=== PATIENT | female | born 1965 | race Caucasian/White ===

== ENCOUNTER 2016-10-22 23:02 | Inpatient (IN) ==
[2016-10-22 23:37] LABS: Basophils # 0.1 K/mcL (0.0-0.2); Basophils % 0.9 %; Eosinophils # 0.2 K/mcL (0.0-0.6); Eosinophils % 3.3 %; Hematocrit 47.3 % (35.3-44.9); Hemoglobin 15.9 g/dL (11.5-15.4); Immature Granulocytes % 1.2 % (0-4); Lymphocytes # 2.3 K/mcL (0.6-4.6); Lymphocytes % 35.4 %; Mean Corpuscular HGB Conc 33.6 g/dL (31.6-35.5); Mean Corpuscular Hemoglobin 30.9 pg (28.0-33.3); Mean Corpuscular Volume 91.8 fL (83.0-100.0); Mean Platelet Volume 10.7 fL (9.4-12.4); Monocytes # 0.7 K/mcL (0.0-1.3); Monocytes % 10.9 %; Neutrophils # 3.1 K/mcL (1.6-8.9); Platelet Count 199 K/mcL (140-400); Red Blood Count 5.15 M/mcL (3.82-4.97); Red Cell Distribution Width 14.6 % (11.5-14.5); Segmented Neutrophils % 48.3 %
[2016-10-22 23:47] LABS: Bilirubin,Urine Negative (Negative); Blood,Urine Negative (Negative); Color,Urine Yellow (Yellow); Glucose,Urine (UA) Normal (Normal); Ketones,Urine Negative (Negative); Leukocyte Esterase,Urine Negative (Negative); Nitrite,Urine Negative (Negative); Protein,Urine Negative (Neg-Trace); Specific Gravity,Urine 1.011 (1.010-1.025); Urobilinogen,Urine Normal (Normal)
[2016-10-22 23:51] LABS: Clarity,Urine Clear (Clear)
[2016-10-22 23:51] LABS: Alanine Aminotransferase 40 Units/L (0-55); Albumin 3.7 g/dL (3.5-5.0); Albumin/Globulin Ratio 1.1 (1.1-2.2); Alkaline Phosphatase 94 Units/L (38-126); Aspartate Amino Transferase 33 Units/L (5-34); BUN/Creatinine Ratio 12 (6-26); Bilirubin,Direct 0.1 mg/dL (0.0-0.5); Bilirubin,Indirect 0.2 mg/dL (0.0-1.2); Bilirubin,Total 0.3 mg/dL (0.2-1.2); Blood Urea Nitrogen 11 mg/dL (7-20); Calcium 9.5 mg/dL (8.6-10.8); Carbon Dioxide 27 mEq/L (19-29); Chloride 104 mEq/L (98-109); Globulin 3.3 g/dL (2.4-3.5); Glucose 101 mg/dL (70-99); Osmolality,Calculated 294 (280-300); Potassium 3.9 mEq/L (3.5-4.5); Sodium 142 mEq/L (136-145); eGFR For African Americans > 60 (> 60); eGFR For Non-African Americans > 60 (> 60)
[2016-10-22 23:53] LABS: Amphetamine Screen,Urine Negative ng/mL (Cutoff=1000); Barbiturate Screen,Urine Negative ng/mL (Cutoff=200); Benzodiazepines Screen,Urine Positive ng/mL (Cutoff=200); Cannabinoid Screen,Urine Negative ng/mL (Cutoff = 50); Cocaine Screen,Urine Positive ng/mL (Cutoff= 300); Opiate Screen,Urine Negative ng/mL (Cutoff=300); Phencyclidine Screen,Urine Negative ng/mL (Cutoff=25)
[2016-10-23 00:31] LABS: Acetaminophen < 1.0 mcg/mL (10-30); Ethanol 183 mg/dL (0-10); Salicylate < 5.0 mg/dL (15-30)
[2016-10-23 00:52] LABS: Thyroid Stimulating Hormone 4.067 mcIU/mL (0.350-4.840)
[2016-10-23] MEDS ORDERED: *HR* LORazepam 1 MG TABLET PO ONE (02:40)
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
--- NOTE | 2016-10-23 07:45 | Emergency Department Note ---
Disposition Clinical Impression: Suicidal ideation, Non-cardiac chest pain, Polysubstance abuse Disposition: Admitted As Inpatient Condition: Good Referrals: NO,PCP [Primary Care Provider] - Forms: ED Satisfaction Letter Psych HPI - General Chief Complaint: ED Psychiatric Symptoms Stated Complaint: SI Time Seen by Provider: 10/23/16 00:26 Source: patient, EMS - History of Present Illness Duration: constant Improves with: none Associated symptoms: Denies: confusion, headache Treatments prior to arrival: none - Related Data Home Medications Medication Instructions Recorded Confirmed Benztropine [Cogentin] 1 mg PO BID 04/25/16 10/23/16 HydrOXYzine Pamoate 50 mg PO TID PRN 04/25/16 10/23/16 Ropinirole [Requip] 1 mg PO HS 04/25/16 10/23/16 TraZODone 300 mg PO HS 04/25/16 10/23/16 Alprazolam [Xanax 1 MG Tablet] 1 mg PO QID PRN 07/16/16 10/23/16 Escitalopram [Lexapro] 20 mg PO DAILY 07/16/16 10/23/16 Latanoprost [Xalatan] 1 drop OP QPM 07/27/16 10/23/16 Amlodipine [Norvasc] 5 mg PO DAILY 10/23/16 10/23/16 Buspirone HCl [Buspar] 15 mg PO BID 10/23/16 10/23/16 Clotrimazole [Mycelex [place]] 10 mg PO 5XD 10/23/16 10/23/16 Oxybutynin [Ditropan] 5 mg PO BID 10/23/16 10/23/16 Pantoprazole Sodium [Protonix] 40 mg PO DAILY 10/23/16 10/23/16 Previous Rx's Medication Instructions Recorded Famotidine [Pepcid] 40 mg PO BID PRN #0 tablet 04/27/16 Allergies Allergy/AdvReac Type Severity Reaction Status Date / Time No Known Allergies Allergy Verified 10/03/16 15:06 Constitutional: Denies: fever Eyes: Denies: eye pain ENT ED: Denies: ear pain Cardiovascular: Denies: chest pain Respiratory: Denies: cough, dyspnea, wheezes Gastrointestinal: Denies: abdominal pain, nausea, vomiting Genitourinary: Denies: dysuria Musculoskeletal: Denies: back pain Integumentary: Denies: rash Neurological: Denies: headache Psychiatric: Reports: anxiety, depression Endocrine: Denies: fatigue Hematological/Lymphatic: Denies: easy bleeding Allergic/Immunologic: Denies: facial swelling Past Medical History - Past Medical History Medical history: Reports: GERD, hypertension, other Surgical history: Reports: other Psychiatric history: Reports: anxiety, depression, prior suicide attempt, other 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 Patient was reportedly intoxicated, depressed and expressed SI. She had a recent stressful situation that prompted this. She had an etoh level above 80. Plan is to re- draw an etoh level around 8am, and if it is normal then she will be medically cleared for 1A evaluation. Per review of the chart, the patient described having some chest pain around 2am. She states that she has had constant mid chest discomfort. She has had pain like this in the past. Will order a troponin to be done on the blood from the initial draw, and a repeat to be drawn with the repeat etoh. Patient's initial and repeat Troponin are both normal. CXR is normal and ECG is unchanged compared with previous. She is pain free. 1A is going to admit the patient. - Reevaluation(s) Reevaluation #1: medical technical writer in room with the patient. Asked her to draw a repeat Troponin as well as the etoh as patient had reported chest pain earlier in the evening. Time: 08:04 Vital Signs Temperature 98.2 F 10/22/16 23:05 Pulse Rate 88 10/22/16 23:05 Respiratory Rate 16 10/22/16 23:05 Blood Pressure 115/77 10/22/16 23:05 O2 Sat by Pulse Oximetry 95 10/22/16 23:05 Temperature 98.3 F 10/23/16 09:11 Pulse Rate 82 10/23/16 09:11 Respiratory Rate 16 10/23/16 09:11 Blood Pressure 122/76 10/23/16 09:11 O2 Sat by Pulse Oximetry 99 10/23/16 09:11 Oxygen Delivery Oxygen Delivery Room Air Psych - Lab Data Result diagrams: 10/22/16 23:22 10/22/16 23:22 Lab Results 10/22/16 10/22/16 10/22/16 Range/Units 08:07 23:22 23:22 WBC 6.4 (4.3-11.1) K/mcL RBC 5.15 H (3.82-4.97) M/mcL Hgb 15.9 H (11.5-15.4) g/dL Hct 47.3 H (35.3-44.9) % MCV 91.8 (83.0-100.0) fL MCH 30.9 (28.0-33.3) pg MCHC 33.6 (31.6-35.5) g/dL RDW 14.6 H (11.5-14.5) % Plt Count 199 (140-400) K/mcL MPV 10.7 (9.4-12.4) fL Immature Gran % 1.2 (0-4) % Seg Neutrophils % 48.3 % Lymphocytes % 35.4 % Monocytes % 10.9 % Eosinophils % 3.3 % Basophils % 0.9 % Neutrophils # 3.1 (1.6-8.9) K/mcL Lymphocytes # 2.3 (0.6-4.6) K/mcL Monocytes # 0.7 (0.0-1.3) K/mcL Eosinophils # 0.2 (0.0-0.6) K/mcL Basophils # 0.1 (0.0-0.2) K/mcL Sodium 142 (136-145) mEq/L Potassium 3.9 (3.5-4.5) mEq/L Chloride 104 (98-109) mEq/L Carbon Dioxide 27 (19-29) mEq/L BUN 11 (7-20) mg/dL Creatinine 0.93 (0.57-1.11) mg/dL Est GFR ( Amer) > 60 (> 60) Est GFR (Non-Af Amer) > 60 (> 60) BUN/Creatinine Ratio 12 (6-26) Glucose 101 H (70-99) mg/dL Calculated Osmolality 294 (280-300) Calcium 9.5 (8.6-10.8) mg/dL Total Bilirubin 0.3 (0.2-1.2) mg/dL Direct Bilirubin 0.1 (0.0-0.5) mg/dL Indirect Bilirubin 0.2 (0.0-1.2) mg/dL AST 33 (5-34) Units/L ALT 40 (0-55) Units/L Alkaline Phosphatase 94 (38-126) Units/L Troponin I 0.01 (0-0.03) ng/mL Serum Total Protein 7.0 (6.0-8.3) g/dL Albumin 3.7 (3.5-5.0) g/dL Globulin 3.3 (2.4-3.5) g/dL Albumin/Globulin Ratio 1.1 (1.1-2.2) TSH 4.067 (0.350-4.840) mcIU/mL Urine Color (Yellow) Urine Clarity (Clear) Urine pH (5.0-8.0) pH Units Ur Specific [place] (1.010-1.025) Urine Protein (Neg-Trace) mg/dL Urine Glucose (UA) (Normal) mg/dL Urine Ketones (Negative) mg/dL Urine Blood (Negative) Urine Nitrite (Negative) Urine Bilirubin (Negative) Urine Urobilinogen (Normal) mg/dL Ur Leukocyte Esterase (Negative) Urine Microscopic RBC Urine Bacteria Salicylates < 5.0 L (15-30) mg/dL Urine Opiates Screen (Xhiymk=468) ng/mL Acetaminophen < 1.0 L (10-30) mcg/mL Ur Barbiturates Screen (Zyehog=010) ng/mL Ur Phencyclidine Scrn (Cutoff=25) ng/mL Ur Amphetamines Screen (Qbktiv=3230) ng/mL U Benzodiazepines Scrn (Gtbwir=646) ng/mL Urine Cocaine Screen (Cutoff= 300) ng/mL U Marijuana (THC) Screen (Cutoff = 50) ng/mL Ethyl Alcohol 183 H (0-10) mg/dL 10/22/16 10/22/16 10/23/16 Range/Units 23:40 23:40 05:10 WBC (4.3-11.1) K/mcL RBC (3.82-4.97) M/mcL Hgb (11.5-15.4) g/dL Hct (35.3-44.9) % MCV (83.0-100.0) fL MCH (28.0-33.3) pg MCHC (31.6-35.5) g/dL RDW (11.5-14.5) % Plt Count (140-400) K/mcL MPV (9.4-12.4) fL Immature Gran % (0-4) % Seg Neutrophils % % Lymphocytes % % Monocytes % % Eosinophils % % Basophils % % Neutrophils # (1.6-8.9) K/mcL Lymphocytes # (0.6-4.6) K/mcL Monocytes # (0.0-1.3) K/mcL Eosinophils # (0.0-0.6) K/mcL Basophils # (0.0-0.2) K/mcL Sodium (136-145) mEq/L Potassium (3.5-4.5) mEq/L Chloride (98-109) mEq/L Carbon Dioxide (19-29) mEq/L BUN (7-20) mg/dL Creatinine (0.57-1.11) mg/dL Est GFR ( Amer) (> 60) Est GFR (Non-Af Amer) (> 60) BUN/Creatinine Ratio (6-26) Glucose (70-99) mg/dL Calculated Osmolality (280-300) Calcium (8.6-10.8) mg/dL Total Bilirubin (0.2-1.2) mg/dL Direct Bilirubin (0.0-0.5) mg/dL Indirect Bilirubin (0.0-1.2) mg/dL AST (5-34) Units/L ALT (0-55) Units/L Alkaline Phosphatase (38-126) Units/L Troponin I (0-0.03) ng/mL Serum Total Protein (6.0-8.3) g/dL Albumin (3.5-5.0) g/dL Globulin (2.4-3.5) g/dL Albumin/Globulin Ratio (1.1-2.2) TSH (0.350-4.840) mcIU/mL Urine Color Yellow (Yellow) Urine Clarity Clear (Clear) Urine pH 6.0 (5.0-8.0) pH Units Ur Specific [place] 1.011 (1.010-1.025) Urine Protein Negative (Neg-Trace) mg/dL Urine Glucose (UA) Normal (Normal) mg/dL Urine Ketones Negative (Negative) mg/dL Urine Blood Negative (Negative) Urine Nitrite Negative (Negative) Urine Bilirubin Negative (Negative) Urine Urobilinogen Normal (Normal) mg/dL Ur Leukocyte Esterase Negative (Negative) Urine Microscopic RBC LEASING DIRECTOR Urine Bacteria LEASING DIRECTOR Salicylates (15-30) mg/dL Urine Opiates Screen Negative (Jjqvhm=206) ng/mL Acetaminophen (10-30) mcg/mL Ur Barbiturates Screen Negative (Zrhvpy=545) ng/mL Ur Phencyclidine Scrn Negative (Cutoff=25) ng/mL Ur Amphetamines Screen Negative (Jpmqbr=7079) ng/mL U Benzodiazepines Scrn Positive H (Acpyrv=217) ng/mL Urine Cocaine Screen Positive H (Cutoff= 300) ng/mL U Marijuana (THC) Screen Negative (Cutoff = 50) ng/mL Ethyl Alcohol 98 H (0-10) mg/dL 10/23/16 10/23/16 Range/Units 08:07 08:07 WBC (4.3-11.1) K/mcL RBC (3.82-4.97) M/mcL Hgb (11.5-15.4) g/dL Hct (35.3-44.9) % MCV (83.0-100.0) fL MCH (28.0-33.3) pg MCHC (31.6-35.5) g/dL RDW (11.5-14.5) % Plt Count (140-400) K/mcL MPV (9.4-12.4) fL Immature Gran % (0-4) % Seg Neutrophils % % Lymphocytes % % Monocytes % % Eosinophils % % Basophils % % Neutrophils # (1.6-8.9) K/mcL Lymphocytes # (0.6-4.6) K/mcL Monocytes # (0.0-1.3) K/mcL Eosinophils # (0.0-0.6) K/mcL Basophils # (0.0-0.2) K/mcL Sodium (136-145) mEq/L Potassium (3.5-4.5) mEq/L Chloride (98-109) mEq/L Carbon Dioxide (19-29) mEq/L BUN (7-20) mg/dL Creatinine (0.57-1.11) mg/dL Est GFR ( Amer) (> 60) Est GFR (Non-Af Amer) (> 60) BUN/Creatinine Ratio (6-26) Glucose (70-99) mg/dL Calculated Osmolality (280-300) Calcium (8.6-10.8) mg/dL Total Bilirubin (0.2-1.2) mg/dL Direct Bilirubin (0.0-0.5) mg/dL Indirect Bilirubin (0.0-1.2) mg/dL AST (5-34) Units/L ALT (0-55) Units/L Alkaline Phosphatase (38-126) Units/L Troponin I 0.01 (0-0.03) ng/mL Serum Total Protein (6.0-8.3) g/dL Albumin (3.5-5.0) g/dL Globulin (2.4-3.5) g/dL Albumin/Globulin Ratio (1.1-2.2) TSH (0.350-4.840) mcIU/mL Urine Color (Yellow) Urine Clarity (Clear) Urine pH (5.0-8.0) pH Units Ur Specific [place] (1.010-1.025) Urine Protein (Neg-Trace) mg/dL Urine Glucose (UA) (Normal) mg/dL Urine Ketones (Negative) mg/dL Urine Blood (Negative) Urine Nitrite (Negative) Urine Bilirubin (Negative) Urine Urobilinogen (Normal) mg/dL Ur Leukocyte Esterase (Negative) Urine Microscopic RBC Urine Bacteria Salicylates (15-30) mg/dL Urine Opiates Screen (Zpuggh=029) ng/mL Acetaminophen (10-30) mcg/mL Ur Barbiturates Screen (Yucpqj=298) ng/mL Ur Phencyclidine Scrn (Cutoff=25) ng/mL Ur Amphetamines Screen (Haydgj=8961) ng/mL U Benzodiazepines Scrn (Eyxwvv=207) ng/mL Urine Cocaine Screen (Cutoff= 300) ng/mL U Marijuana (THC) Screen (Cutoff = 50) ng/mL Ethyl Alcohol 52 H (0-10) mg/dL Psychiatric Medical Clearance - Medical Clearance Checklist Medical History: No Social History Section defined Current Vitals: Last Vital Signs Temp 98.3 F 10/23/16 09:11 Pulse 82 10/23/16 09:11 Resp 16 10/23/16 09:11 BP 122/76 10/23/16 09:11 Pulse Ox 99 10/23/16 09:11 Psychiatric Lab Panel: Drug Levels and Toxicity 10/22/16 10/22/16 10/23/16 23:22 23:40 05:10 Urine Opiates Screen Negative Acetaminophen < 1.0 L Ur Barbiturates Screen Negative Ur Phencyclidine Scrn Negative Ur Amphetamines Screen Negative U Benzodiazepines Scrn Positive H Urine Cocaine Screen Positive H U Marijuana (THC) Screen Negative Ethyl Alcohol 183 H 98 H 10/23/16 08:07 Urine Opiates Screen Acetaminophen Ur Barbiturates Screen Ur Phencyclidine Scrn Ur Amphetamines Screen U Benzodiazepines Scrn Urine Cocaine Screen U Marijuana (THC) Screen Ethyl Alcohol 52 H Abnormal Labs: Abnormal lab results RBC 5.15 M/mcL (3.82-4.97) H 10/22/16 23:22 Hgb 15.9 g/dL (11.5-15.4) H 10/22/16 23:22 Hct 47.3 % (35.3-44.9) H 10/22/16 23:22 RDW 14.6 % (11.5-14.5) H 10/22/16 23:22 Glucose 101 mg/dL (70-99) H 10/22/16 23:22 Salicylates < 5.0 mg/dL (15-30) L 10/22/16 23:22 Acetaminophen < 1.0 mcg/mL (10-30) L 10/22/16 23:22 U Benzodiazepines Scrn Positive ng/mL (Qrhotm=456) H 10/22/16 23:40 Urine Cocaine Screen Positive ng/mL (Cutoff= 300) H 10/22/16 23:40 Ethyl Alcohol 52 mg/dL (0-10) H 10/23/16 08:07 Statement of Medical Clearance: I have evaluated the patient, reviewed diagnostic information, and certify that the patient's medical condition is sufficiently stable that transfer to the psychiatric unit does not pose a significant risk of deterioration. Attestation Statement - Attestation Attestation: I examined this patient and my medical decision-making was reviewed with the DIRECTOR OF SUSTAINABILITY/PA/Advanced Practice Nurse/Resident Physician. I agree with the documented findings, disposition and treatment plan as described except to the extent set forth below. [id number] time provided Patient presented intoxicated. She was cleared medically for behavioral evaluation. She was accepted for admission to the behavioral unit. She is resting comfortably at the time of my exam. I did review her labs
[2016-10-23] MEDS ORDERED: MOM Conc 10 ML UD.LIQ PO PRN (14:09)
[2016-10-23] MEDS ORDERED: Haloperidol Lactate 5 MG/ML VIAL IM PRN (14:09)
[2016-10-23] MEDS ORDERED: Mag Hydrox/Al Hydrox/Simeth 30 ML UDC PO PRN (14:09)
[2016-10-23] MEDS ORDERED: *HR* LORazepam 1 MG TABLET PO PRN (14:09)
[2016-10-23] MEDS ORDERED: *HR* LORazepam 2 MG/ML VIAL IM PRN (14:09)
[2016-10-23] MEDS ORDERED: traZODone 50 MG TABLET PO PRN (14:09)
[2016-10-23] MEDS ORDERED: Famotidine 20 MG TABLET PO PRN (14:12)
[2016-10-23] MEDS: ALPRAZolam 1 MG TABLET PO SCH ×2 (15:07→20:50)
[2016-10-23] MEDS: Latanoprost 2.5 ML BOTTLE BOTH EYES SCH (17:23)
[2016-10-23] MEDS: Ibuprofen 400 MG TABLET PO PRN (17:27)
[2016-10-23] MEDS: rOPINIRole 1 MG TABLET PO SCH (20:50)
[2016-10-23] MEDS: traZODone 50 MG TABLET PO SCH (20:51)
[2016-10-24] MEDS: ALPRAZolam 1 MG TABLET PO SCH ×3 (08:42→20:44)
[2016-10-24] MEDS: amLODIPine 5 MG TABLET PO SCH (08:42)
[2016-10-24] MEDS: Nicotine 21 MG PATCH.TD24 TD SCH (08:44)
--- NOTE | 2016-10-24 11:06 | Psychiatry History & Physical ---
Date of Encounter: 10/24/16 Time of Encounter: 11:00 History of Present Illness Patient Stated Chief Complaint: Suicidal Medicare Admission Attestation: For traditional Medicare patients the provided hospital inpatient services are reasonable and necessary and in the case of services not specified as inpatient -only under 42 CFR 419.22 (n), that they are appropriately provided as inpatient services in accordance 42 CFR 412.3. For [facility] the patient may reasonably be expected to be discharged or transferred to a hospital within 96 hours after admission to the Critical [facility]. Admitted From: Emergency Dept History of Present Illness: Ms. Card is a 51 year old female admitted suicidal ideation and intoxication was alcohol and cocaine. Patient reported that she was upset after her dog was killed by another dog. Patient has history of alcohol dependence and depression has been on medication for several years. 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 She had been hospitalized before on this unit for similar presentation. She reports having 2 DUIs in her 20s. Past Med Surg Social Fam HX - Past Medical History Medical history: GERD, hypertension, other - Past Psychiatric History Psychiatric history: Reports: depression, previous psychiatric hospitalization Family psychiatric history: Unknown Family History of Suicide: Unknown - Past Surgical History Surgical History: hysterectomy - Social History Smoking Status: Current every day smoker Smokeless Tobacco Status: No Alcohol use: recent Drug use: none Medications & Allergies Benztropine [Cogentin] 1 mg PO BID 04/25/16 [History] HydrOXYzine Pamoate 50 mg PO TID PRN 04/25/16 [History] Ropinirole [Requip] 1 mg PO HS 04/25/16 [History] TraZODone 300 mg PO HS 04/25/16 [History] Famotidine [Pepcid] 40 mg PO BID PRN #0 tablet 04/27/16 [Rx] Alprazolam [Xanax 1 MG Tablet] 1 mg PO QID PRN 07/16/16 [History] Escitalopram [Lexapro] 20 mg PO DAILY 07/16/16 [History] Latanoprost [Xalatan] 1 drop OP QPM 07/27/16 [History] Amlodipine [Norvasc] 5 mg PO DAILY 10/23/16 [History] Buspirone HCl [Buspar] 15 mg PO BID 10/23/16 [History] Clotrimazole [Mycelex Destinee] 10 mg PO 5XD 10/23/16 [History] Oxybutynin [Ditropan] 5 mg PO BID 10/23/16 [History] Pantoprazole Sodium [Protonix] 40 mg PO DAILY 10/23/16 [History] Allergies No Known Allergies Allergy (Verified 10/03/16 15:06) Review of Systems Psychiatric: Reports: suicidal ideation Mental Status Exam Patient orientation: Yes Person, Yes Time, Yes Place Level of alertness: Alert Patient appearance: Appropriate, Well Groomed, Obese Behavior: calm, cooperative, anxious Psychomotor activity: Normal Eye contact: Maintains Eye Contact Mood description: Depressed, Anxious Affect description: constricted, dysphoric Speech pattern: Normal rate, Normal rhythm, Normal tone, Slowed, Limited Speech volume: Normal Thought process: Linear, Goal Oriented Thought content: Yes Suicidal ideation, No Homicidal ideation, No Overt delusions Perceptual disturbances: No Auditory hallucinations, No Visual hallucinations Attention span: Capable of Sustained Attention Memory description: Grossly Intact Patient reliability: Questionable Historian Intelligence estimate: Average Judgment: Limited Insight: Partial Results - Vital Signs Vital signs: Temp Pulse Resp BP Pulse Ox 97.9 F 75 18 130/91 99 10/24/16 08:00 10/24/16 08:00 10/24/16 08:00 10/24/16 08:00 10/23/16 09:11 - Labs Labs: Laboratory Last Values WBC 6.4 K/mcL (4.3-11.1) 10/22/16 23:22 RBC 5.15 M/mcL (3.82-4.97) H 10/22/16 23:22 Hgb 15.9 g/dL (11.5-15.4) H 10/22/16 23:22 Hct 47.3 % (35.3-44.9) H 10/22/16 23:22 MCV 91.8 fL (83.0-100.0) 10/22/16 23:22 MCH 30.9 pg (28.0-33.3) 10/22/16 23:22 MCHC 33.6 g/dL (31.6-35.5) 10/22/16 23:22 RDW 14.6 % (11.5-14.5) H 10/22/16 23:22 Plt Count 199 K/mcL (140-400) 10/22/16 23:22 MPV 10.7 fL (9.4-12.4) 10/22/16 23:22 Immature Gran % 1.2 % (0-4) 10/22/16 23:22 Seg Neutrophils % 48.3 % 10/22/16 23:22 Lymphocytes % 35.4 % 10/22/16 23:22 Monocytes % 10.9 % 10/22/16 23:22 Eosinophils % 3.3 % 10/22/16 23:22 Basophils % 0.9 % 10/22/16 23:22 Neutrophils # 3.1 K/mcL (1.6-8.9) 10/22/16 23:22 Lymphocytes # 2.3 K/mcL (0.6-4.6) 10/22/16 23:22 Monocytes # 0.7 K/mcL (0.0-1.3) 10/22/16 23:22 Eosinophils # 0.2 K/mcL (0.0-0.6) 10/22/16 23:22 Basophils # 0.1 K/mcL (0.0-0.2) 10/22/16 23:22 Sodium 142 mEq/L (136-145) 10/22/16 23:22 Potassium 3.9 mEq/L (3.5-4.5) 10/22/16 23:22 Chloride 104 mEq/L (98-109) 10/22/16 23:22 Carbon Dioxide 27 mEq/L (19-29) 10/22/16 23:22 BUN 11 mg/dL (7-20) 10/22/16 23:22 Creatinine 0.93 mg/dL (0.57-1.11) 10/22/16 23:22 Est GFR ( Amer) > 60 (> 60) 10/22/16 23:22 Est GFR (Non-Af Amer) > 60 (> 60) 10/22/16 23:22 BUN/Creatinine Ratio 12 (6-26) 10/22/16 23:22 Glucose 101 mg/dL (70-99) H 10/22/16 23:22 Calculated Osmolality 294 (280-300) 10/22/16 23:22 Calcium 9.5 mg/dL (8.6-10.8) 10/22/16 23:22 Total Bilirubin 0.3 mg/dL (0.2-1.2) 10/22/16 23:22 Direct Bilirubin 0.1 mg/dL (0.0-0.5) 10/22/16 23:22 Indirect Bilirubin 0.2 mg/dL (0.0-1.2) 10/22/16 23:22 AST 33 Units/L (5-34) 10/22/16 23:22 ALT 40 Units/L (0-55) 10/22/16 23:22 Alkaline Phosphatase 94 Units/L (38-126) 10/22/16 23:22 Troponin I 0.01 ng/mL (0-0.03) 10/23/16 08:07 Serum Total Protein 7.0 g/dL (6.0-8.3) 10/22/16 23:22 Albumin 3.7 g/dL (3.5-5.0) 10/22/16 23:22 Globulin 3.3 g/dL (2.4-3.5) 10/22/16 23:22 Albumin/Globulin Ratio 1.1 (1.1-2.2) 10/22/16 23:22 TSH 4.067 mcIU/mL (0.350-4.840) 10/22/16 23:22 Urine Color Yellow (Yellow) 10/22/16 23:40 Urine Clarity Clear (Clear) 10/22/16 23:40 Urine pH 6.0 pH Units (5.0-8.0) 10/22/16 23:40 Ur Specific Ker[place] 1.011 (1.010-1.025) 10/22/16 23:40 Urine Protein Negative mg/dL (Neg-Trace) 10/22/16 23:40 Urine Glucose (UA) Normal mg/dL (Normal) 10/22/16 23:40 Urine Ketones Negative mg/dL (Negative) 10/22/16 23:40 Urine Blood Negative (Negative) 10/22/16 23:40 Urine Nitrite Negative (Negative) 10/22/16 23:40 Urine Bilirubin Negative (Negative) 10/22/16 23:40 Urine Urobilinogen Normal mg/dL (Normal) 10/22/16 23:40 Ur Leukocyte Esterase Negative (Negative) 10/22/16 23:40 Urine Microscopic RBC PEARL MAKER 10/22/16 23:40 Urine Bacteria PEARL MAKER 10/22/16 23:40 Salicylates < 5.0 mg/dL (15-30) L 10/22/16 23:22 Urine Opiates Screen Negative ng/mL (Ersmhb=937) 10/22/16 23:40 Acetaminophen < 1.0 mcg/mL (10-30) L 10/22/16 23:22 Ur Barbiturates Screen Negative ng/mL (Dkalcd=647) 10/22/16 23:40 Ur Phencyclidine Scrn Negative ng/mL (Cutoff=25) 10/22/16 23:40 Ur Amphetamines Screen Negative ng/mL (Cqxyfs=0343) 10/22/16 23:40 U Benzodiazepines Scrn Positive ng/mL (Biszzz=811) H 10/22/16 23:40 Urine Cocaine Screen Positive ng/mL (Cutoff= 300) H 10/22/16 23:40 U Marijuana (THC) Screen Negative ng/mL (Cutoff = 50) 10/22/16 23:40 Ethyl Alcohol 52 mg/dL (0-10) H 10/23/16 08:07 Assessment and Plan (1) Suicidal ideation Current visit: Yes Status: Acute Plan: Admit inpatient for safety and stabilization, Close observation, Suicide Precautions per unit protocol, Encourage participation in unit milieu, Group Therapy, Monitor sleep, Monitor appetite Risks, benefits, side effects, alternatives discussed w/pt: Yes Patient agreeable to treatment: Yes (2) Alcohol dependence Current visit: No Status: Acute Plan: Admit inpatient for safety and stabilization, Close observation, Suicide Precautions per unit protocol, Encourage participation in unit milieu, Group Therapy, Monitor sleep, Monitor appetite Risks, benefits, side effects, alternatives discussed w/pt: Yes Patient agreeable to treatment: Yes Estimated Length of Stay (Days): 5 Qualifiers: Substance use status: with intoxication Complication of substance-induced condition: with unspecified complication Qualified Code(s): F10.229 - Alcohol dependence with intoxication, unspecified (3) Cocaine abuse Current visit: Yes Status: Acute Plan: Admit inpatient for safety and stabilization, Close observation, Suicide Precautions per unit protocol, Encourage participation in unit milieu, Group Therapy, Monitor sleep, Monitor appetite Risks, benefits, side effects, alternatives discussed w/pt: Yes Patient agreeable to treatment: Yes
[2016-10-24] MEDS: Ibuprofen 400 MG TABLET PO PRN ×2 (12:21→20:43)
[2016-10-24] MEDS: hydrOXYzine pamoate 25 MG CAPSULE PO PRN (12:23)
[2016-10-24] MEDS: Latanoprost 2.5 ML BOTTLE BOTH EYES SCH (17:03)
[2016-10-24] MEDS: traZODone 50 MG TABLET PO SCH (20:43)
[2016-10-24] MEDS: rOPINIRole 1 MG TABLET PO SCH (20:43)
--- NOTE | 2016-10-24 21:47 | Electrocardiograph Report ---
[facility] Test Date: 2016-10-23 Pat Name: Brittanie Cadr Department: 104 Room: 1A42 Gender: F Process Improvement Specialist: : [id number] Requested By: Roberto Montes Order Number: [id number] Reading MD: Cameron Thornton MD Measurements Intervals Tracy Rate: 73 P: 7 VA: 149 QRS: 56 QRSD: 98 T: -10 QT: 425 QTc: 451 Interpretive Statements SINUS RHYTHM NONSPECIFIC T-WAVE ABNORMALITY Electronically Signed On 10-24-2016 21:46:08 EST by Cameron Thornton MD
[2016-10-25] MEDS: amLODIPine 5 MG TABLET PO SCH (09:10)
[2016-10-25] MEDS: ALPRAZolam 1 MG TABLET PO SCH ×3 (09:10→20:47)
[2016-10-25] MEDS: Nicotine 21 MG PATCH.TD24 TD SCH (09:11)
[2016-10-25] MEDS: hydrOXYzine pamoate 25 MG CAPSULE PO PRN ×2 (12:48→17:28)
[2016-10-25] MEDS: Ibuprofen 400 MG TABLET PO PRN (12:49)
--- NOTE | 2016-10-25 15:06 | Psychiatry Progress Note ---
Date of Encounter: 10/25/16 Time of Encounter: 15:02 Subjective Interval history: Patient seen for follow-up. nursing staff-report she is seclusive to her room and spending most of her time in bed sleeping, she is not interacting or socializing with other patients. she denies suicidal ideation and compliant with her medication. I had a discussion with her about activities and motivation and the need to have this for the day and activities. I encouraged her to attend groups. Review of Systems Psychiatric: Reports: depression, abnormal sleep pattern Objective: Exam Patient orientation: Yes Person, Yes Time, Yes Place Level of alertness: Alert Patient appearance: Appropriate, Well Groomed, Obese Behavior: calm, cooperative, anxious Psychomotor activity: Normal Eye contact: Maintains Eye Contact Mood description: Depressed, Anxious Affect description: constricted, dysphoric Speech pattern: Normal rate, Normal rhythm, Normal tone, Slowed, Limited Speech volume: Normal Thought process: Linear, Goal Oriented Thought content: Yes Suicidal ideation, No Homicidal ideation, No Overt delusions Perceptual disturbances: No Auditory hallucinations, No Visual hallucinations Judgment: Limited Insight: Partial Results - Vital Signs Vital Signs: Temp Pulse Resp BP Pulse Ox 98.2 F 77 16 117/73 99 10/25/16 12:00 10/25/16 12:00 10/25/16 12:00 10/25/16 12:00 10/23/16 09:11 Assessment and Plan (1) Suicidal ideation Current visit: Yes Status: Acute Plan: Continue hospitalization, Close observation, Suicide Precautions per unit protocol, Encourage participation in unit milieu, Group Therapy, Monitor sleep, Monitor appetite Risks, benefits, side effects, alternatives discussed w/pt: Yes Patient agreeable to treatment: Yes (2) Alcohol dependence Current visit: No Status: Acute Plan: Continue hospitalization, Close observation, Suicide Precautions per unit protocol, Encourage participation in unit milieu, Group Therapy, Monitor sleep, Monitor appetite Risks, benefits, side effects, alternatives discussed w/pt: Yes Patient agreeable to treatment: Yes Qualifiers: Substance use status: with intoxication Complication of substance-induced condition: with unspecified complication Qualified Code(s): F10.229 - Alcohol dependence with intoxication, unspecified (3) Cocaine abuse Current visit: Yes Status: Acute Plan: Continue hospitalization, Close observation, Suicide Precautions per unit protocol, Encourage participation in unit milieu, Group Therapy, Monitor sleep, Monitor appetite Risks, benefits, side effects, alternatives discussed w/pt: Yes Patient agreeable to treatment: Yes Consult Discharge Plan - Plan Referrals: Stanislav Bourne [facility] [place] [Outside] - 10/27/16 2:00 pm (The above appointment is with Avtar Luis.) Steffen Alfonso [facility] Of [employer] [facility] [place] [Outside] - 11/14/16 2:30 pm (The above appointment is with Porsha Guevara, psychaitric prescriber.)
[2016-10-25] MEDS: Latanoprost 2.5 ML BOTTLE BOTH EYES SCH (17:28)
[2016-10-25] MEDS: rOPINIRole 1 MG TABLET PO SCH (20:47)
[2016-10-25] MEDS: traZODone 50 MG TABLET PO SCH ×2 (20:48→21:10)
[2016-10-26] MEDS: Ibuprofen 400 MG TABLET PO PRN (07:37)
[2016-10-26] MEDS: Nicotine 21 MG PATCH.TD24 TD SCH (08:06)
[2016-10-26] MEDS: ALPRAZolam 1 MG TABLET PO SCH (08:07)
[2016-10-26] MEDS: amLODIPine 5 MG TABLET PO SCH (08:07)
[2016-10-26 09:22] VITALS: BP 114/73
--- NOTE | 2016-10-26 11:20 | Discharge Summary ---
Date of Encounter: 10/26/16 Time of Encounter: 11:13 Diagnosis - Discharge Diagnosis (1) Suicidal ideation Status: Acute (2) Alcohol dependence Status: Acute Qualifiers: Substance use status: with intoxication Complication of substance-induced condition: with unspecified complication Qualified Code(s): F10.229 - Alcohol dependence with intoxication, unspecified (3) Cocaine abuse Status: Acute Medications - Discharge Medications Benztropine [Cogentin] 1 mg PO BID 04/25/16 [History] HydrOXYzine Pamoate 50 mg PO TID PRN 04/25/16 [History] Ropinirole [Requip] 1 mg PO HS 04/25/16 [History] TraZODone 300 mg PO HS 04/25/16 [History] Famotidine [Pepcid] 40 mg PO BID PRN #0 tablet 04/27/16 [Rx] Escitalopram [Lexapro] 20 mg PO DAILY 07/16/16 [History] Latanoprost [Xalatan] 1 drop OP QPM 07/27/16 [History] Amlodipine [Norvasc] 5 mg PO DAILY 10/23/16 [History] Buspirone HCl [Buspar] 15 mg PO BID 10/23/16 [History] Clotrimazole [Mycelex Destinee] 10 mg PO 5XD 10/23/16 [History] Oxybutynin [Ditropan] 5 mg PO BID 10/23/16 [History] Pantoprazole Sodium [Protonix] 40 mg PO DAILY 10/23/16 [History] Alprazolam [Xanax 1 MG Tablet] 1 mg PO TID tablet 10/26/16 [Rx] Allergies No Known Allergies Allergy (Verified 10/03/16 15:06) Provider Date of admission: 10/24/16 10:06 Primary care physician: PCP NO Discharging clinician: Gus Albert Assessment and Plan - Patient/Caregiver Discharge Instructions Activity: resume usual activities as tolerated Diet: regular diet - Follow up Plan Follow up with: Stanislav Bourne [facility] [Outside] - 10/27/16 2:00 pm (The above appointment is with Avtar Smith) [facility] [place] - 11/14/16 2:30 pm (The above appointment is with Rbecca Scotland, psychaitric prescriber.) Functional capacity at discharge: independent ambulation Overall status at discharge: Stable Disposition: Home, Self-Care Hospital Course Hospital course: Ms. Card is a 51 year old female admitted from the emergency room for depression and suicidal ideation and intoxication ALCOHOL, cocaine and benzodiazepine. For details of admission please see H&P. On the unit patient was monitored for withdrawal symptoms she did not have any significant was she was started on her medication and did not participate in groups or activities she spent most of time in her room and sleeping. She denied any suicidal ideation and reported improved level of energy and mood she became less depressed. She was advised not to use alcohol or cocaine. Follow- up plans were completed by the licensed master social worker. Prior to discharge she was medically stable and denies suicidal ideation and looking forward to continue follow-up as scheduled. - Time Spent with Patient Total time spent providing and/or coordinating discharge services: Greater than 30 minutes Quality - Multiple Antipsychotics Patient discharged on 2 or more antipsychotic medications: No Procedures - Procedures Procedures: Medication Management, Crisis Stabilization, Supportive Therapy, Group Therapy, Psychoeducational Therapy Mental Status Exam - Mental Status Exam Patient orientation: Yes Person, Yes Time, Yes Place Level of alertness: Alert Patient appearance: Appropriate, Well Groomed, Obese Behavior: calm, cooperative, anxious Psychomotor activity: Normal Eye contact: Maintains Eye Contact Mood description: Euthymic/stable, Anxious Affect description: constricted Speech pattern: Normal rate, Normal rhythm, Normal tone, Slowed, Limited Speech Volume: Normal Thought process: Linear, Goal Oriented Thought Content: No Suicidal ideation, No Homicidal ideation, No Overt delusions Perceptual Disturbances: No Auditory hallucinations, No Visual hallucinations Judgment: Limited Insight: Partial
== END 2016-10-26 12:45 | disposition home or self-care (01) | DRG 754 ==
LOC: EMEROO 23:02 → INTOOBSV 10-23 13:38 → 1ANU 10-23 13:38 → SUATTDRO 10-23 13:38 → 1ANU 10-23 14:05
PROVIDERS: ADMIT Psychiatry & Neurology Psychiatry; ATTEND Psychiatry & Neurology Psychiatry

== ENCOUNTER 2017-03-17 21:05 | Inpatient (IN) ==
--- NOTE | 2017-03-17 21:53 | Emergency Department Note ---
Disposition Clinical Impression: Suicidal ideation Depression Qualifiers: Depression Type: unspecified Qualified Code(s): F32.9 - Major depressive disorder, single episode, unspecified Disposition: Home, Self-Care Condition: Good Time of Disposition: 02:01 Psych HPI - General Chief Complaint: ED Psychiatric Symptoms Stated Complaint: Suicidal Ideations Time Seen by Provider: 03/17/17 21:22 Source: EMS Nursing Notes Reviewed: Yes Vital Signs Reviewed: Yes - History of Present Illness HPI Narrative: 51-year-old female presents with suicidal ideation. She mentions earlier today she lost younger brother. She mentions that he had had a history of substance abuse, and today of stroke in the brain bleed at [facility]. She mentioned she did drink some lobo earlier today, but denies any recent suicide attempt. She does mention a history of a previous suicide attempt for 5 years ago where she sliced her list. She is seen at [facility] by Avtar Luis.She mentions a history of chronic back pain and throat pain for which she has been referred to Dr. fu and pain management, otherwise she denies any concerns or recent illness. - Related Data Home Medications Medication Instructions Recorded Confirmed Benztropine [Cogentin] 1 mg PO BID 04/25/16 10/23/16 TraZODone 300 mg PO HS 04/25/16 10/23/16 hydrOXYzine pamoate [HydrOXYzine 50 mg PO TID PRN 04/25/16 10/23/16 Pamoate] rOPINIRole [Requip] 1 mg PO HS 04/25/16 10/23/16 Escitalopram [Lexapro] 20 mg PO DAILY 07/16/16 10/23/16 Latanoprost [Xalatan] 1 drop OP QPM 07/27/16 10/23/16 Buspirone HCl [Buspar] 15 mg PO BID 10/23/16 10/23/16 Clotrimazole [Mycelex Destinee] 10 mg PO 5XD 10/23/16 10/23/16 Oxybutynin [Ditropan] 5 mg PO BID 10/23/16 10/23/16 Pantoprazole Sodium [Protonix] 40 mg PO DAILY 10/23/16 10/23/16 amLODIPine [Norvasc] 5 mg PO DAILY 10/23/16 10/23/16 Previous Rx's Medication Instructions Recorded Famotidine [Pepcid] 40 mg PO BID PRN #0 tablet 04/27/16 ALPRAZolam [Xanax 1 MG Tablet] 1 mg PO TID tablet 10/26/16 Sulfamethoxazole/Trimeth DS 1 each PO BID #14 tablet 01/07/17 [Bactrim DS] Allergies Allergy/AdvReac Type Severity Reaction Status Date / Time No Known Allergies Allergy Verified 10/03/16 15:06 All systems ED: reviewed and negative except as stated. Constitutional: Denies: fever, chills Eyes: Denies: vision change ENT ED: Reports: throat pain (chronic) Cardiovascular: Denies: chest pain, palpitations Respiratory: Denies: cough, dyspnea, wheezes Gastrointestinal: Denies: abdominal pain, nausea, vomiting, diarrhea Genitourinary: Denies: dysuria Musculoskeletal: Reports: back pain (chronic). Denies: neck pain Integumentary: Denies: rash, abrasion Neurological: Denies: headache, weakness, numbness, paresthesias Psychiatric: Denies: depression Endocrine: Denies: fatigue Hematological/Lymphatic: Denies: easy bleeding Allergic/Immunologic: Denies: facial swelling Past Medical History - Past Medical History Medical history: Reports: GERD, hypertension Surgical history: Reports: hysterectomy Psychiatric history: Reports: depression, previous psychiatric hospitalization [employer] history: Reports: no [employer] history - Social History Smoking Status: Current every day smoker Smokeless Tobacco Status: No Alcohol use: Reports: occasionally Drug use: Reports: none Physical Exam - General Limitations: no limitations General appearance: alert, in no apparent distress - Head Head exam: atraumatic, normocephalic - Eye Eye exam: Present: EOMI. Absent: conjunctival injection - ENT ENT exam: mucous membranes moist - Neck Neck exam: Present: normal inspection, full ROM. Absent: tenderness, meningismus - Chest Chest inspection: Present: normal inspection, symmetric chest wall rise - Respiratory Respiratory exam: Present: normal lung sounds bilaterally. Absent: respiratory distress - Cardiovascular Cardiovascular exam: Present: regular rate, normal rhythm - Abdominal Exam Abdominal exam: Present: soft, Non-Tender - Extremities Exam Extremities exam: Present: normal inspection, full ROM, normal capillary refill - Back Exam Back exam: Present: full ROM - Neurological Exam Neurological exam: Present: alert - Psychiatric Psychiatric exam: Present: normal affect, normal mood - Skin Skin exam: Present: warm, dry, intact, normal color. Absent: rash, cyanosis, diaphoresis Course Course Narrative: Patient presents with suicidal ideation. She reports a history of depression. Patient seen and examined. She is in no acute distress does not look toxic. She does appear to be teary-eyed. We will attempt to medically clear her for behavioral health evaluation. - Reevaluation(s) Reevaluation #1: Patient was medically cleared, evaluated by when a staff. I did discuss patient with when a nurse who had discussed with on-call psychiatrist Dr. Willis. Patient will be accepted to 1A. She will be pink slipped Time: 02:01 Vital Signs Temperature 98.9 F 03/17/17 21:07 Pulse Rate 91 03/17/17 21:07 Respiratory Rate 20 03/17/17 21:07 Blood Pressure 106/73 03/17/17 21:07 O2 Sat by Pulse Oximetry 92 03/17/17 21:07 Temperature 97.6 F 03/18/17 03:12 Pulse Rate 77 03/18/17 03:12 Respiratory Rate 16 03/18/17 03:12 Blood Pressure 100/76 03/18/17 03:12 O2 Sat by Pulse Oximetry 92 03/17/17 21:07 Oxygen Delivery Oxygen Delivery Room Air Psych - Lab Data Result diagrams: 03/17/17 21:49 03/17/17 21:49 Lab Results 03/17/17 03/17/17 03/18/17 Range/Units 21:49 21:49 00:00 WBC 8.4 (4.3-11.1) K/mcL RBC 5.50 H (3.82-4.97) M/mcL Hgb 16.8 H (11.5-15.4) g/dL Hct 48.8 H (35.3-44.9) % MCV 88.7 (83.0-100.0) fL MCH 30.5 (28.0-33.3) pg MCHC 34.4 (31.6-35.5) g/dL RDW 14.0 (11.5-14.5) % Plt Count 209 (140-400) K/mcL MPV 10.8 (9.4-12.4) fL Immature Gran % 1.4 (0-4) % Seg Neutrophils % 55.6 % Lymphocytes % 30.1 % Monocytes % 8.9 % Eosinophils % 3.2 % Basophils % 0.8 % Neutrophils # 4.7 (1.6-8.9) K/mcL Lymphocytes # 2.5 (0.6-4.6) K/mcL Monocytes # 0.8 (0.0-1.3) K/mcL Eosinophils # 0.3 (0.0-0.6) K/mcL Basophils # 0.1 (0.0-0.2) K/mcL Immature Plt Fraction 7.6 H (1.1-6.1) % Sodium 139 (136-145) mEq/L Potassium 3.9 (3.5-4.5) mEq/L Chloride 103 (98-109) mEq/L Carbon Dioxide 26 (19-29) mEq/L BUN 13 (7-20) mg/dL Creatinine 0.93 (0.57-1.11) mg/dL Est GFR ( Amer) > 60 (> 60) Est GFR (Non-Af Amer) > 60 (> 60) BUN/Creatinine Ratio 14 (6-26) Glucose 99 (70-99) mg/dL Calculated Osmolality 288 (280-300) Calcium 10.1 (8.6-10.8) mg/dL Urine Color Yellow (Yellow) Urine Clarity Clear (Clear) Urine pH 6.0 (5.0-8.0) pH Units Ur Specific Farner 1.011 (1.010-1.025) Urine Protein Negative (Neg-Trace) mg/dL Urine Glucose (UA) Normal (Normal) mg/dL Urine Ketones Negative (Negative) mg/dL Urine Blood Negative (Negative) Urine Nitrite Negative (Negative) Urine Bilirubin Negative (Negative) Urine Urobilinogen Normal (Normal) mg/dL Ur Leukocyte Esterase Negative (Negative) Salicylates < 5.0 L (15-30) mg/dL Urine Opiates Screen (Zfqwxp=081) ng/mL Acetaminophen < 1.0 L (10-30) mcg/mL Ur Barbiturates Screen (Dsgkhl=896) ng/mL Ur Phencyclidine Scrn (Cutoff=25) ng/mL Ur Amphetamines Screen (Jwxarg=3508) ng/mL U Benzodiazepines Scrn (Ehyych=532) ng/mL Urine Cocaine Screen (Cutoff= 300) ng/mL U Marijuana (THC) Screen (Cutoff = 50) ng/mL Ethyl Alcohol 61 H (0-10) mg/dL 03/18/17 Range/Units 00:00 WBC (4.3-11.1) K/mcL RBC (3.82-4.97) M/mcL Hgb (11.5-15.4) g/dL Hct (35.3-44.9) % MCV (83.0-100.0) fL MCH (28.0-33.3) pg MCHC (31.6-35.5) g/dL RDW (11.5-14.5) % Plt Count (140-400) K/mcL MPV (9.4-12.4) fL Immature Gran % (0-4) % Seg Neutrophils % % Lymphocytes % % Monocytes % % Eosinophils % % Basophils % % Neutrophils # (1.6-8.9) K/mcL Lymphocytes # (0.6-4.6) K/mcL Monocytes # (0.0-1.3) K/mcL Eosinophils # (0.0-0.6) K/mcL Basophils # (0.0-0.2) K/mcL Immature Plt Fraction (1.1-6.1) % Sodium (136-145) mEq/L Potassium (3.5-4.5) mEq/L Chloride (98-109) mEq/L Carbon Dioxide (19-29) mEq/L BUN (7-20) mg/dL Creatinine (0.57-1.11) mg/dL Est GFR ( Amer) (> 60) Est GFR (Non-Af Amer) (> 60) BUN/Creatinine Ratio (6-26) Glucose (70-99) mg/dL Calculated Osmolality (280-300) Calcium (8.6-10.8) mg/dL Urine Color (Yellow) Urine Clarity (Clear) Urine pH (5.0-8.0) pH Units Ur Specific Farner (1.010-1.025) Urine Protein (Neg-Trace) mg/dL Urine Glucose (UA) (Normal) mg/dL Urine Ketones (Negative) mg/dL Urine Blood (Negative) Urine Nitrite (Negative) Urine Bilirubin (Negative) Urine Urobilinogen (Normal) mg/dL Ur Leukocyte Esterase (Negative) Salicylates (15-30) mg/dL Urine Opiates Screen Negative (Uvzsyu=448) ng/mL Acetaminophen (10-30) mcg/mL Ur Barbiturates Screen Negative (Jiuixv=903) ng/mL Ur Phencyclidine Scrn Negative (Cutoff=25) ng/mL Ur Amphetamines Screen Negative (Cqoyfl=5214) ng/mL U Benzodiazepines Scrn Positive H (Rbwxyq=585) ng/mL Urine Cocaine Screen Negative (Cutoff= 300) ng/mL U Marijuana (THC) Screen Negative (Cutoff = 50) ng/mL Ethyl Alcohol (0-10) mg/dL Psychiatric Medical Clearance - Medical Clearance Checklist Medical History: No Social History Section defined Current Vitals: Last Vital Signs Temp 97.6 F 03/18/17 03:12 Pulse 77 03/18/17 03:12 Resp 16 03/18/17 03:12 BP 100/76 03/18/17 03:12 Pulse Ox 92 03/17/17 21:07 Psychiatric Lab Panel: Drug Levels and Toxicity 03/17/17 03/18/17 21:49 00:00 Urine Opiates Screen Negative Acetaminophen < 1.0 L Ur Barbiturates Screen Negative Ur Phencyclidine Scrn Negative Ur Amphetamines Screen Negative U Benzodiazepines Scrn Positive H Urine Cocaine Screen Negative U Marijuana (THC) Screen Negative Ethyl Alcohol 61 H Abnormal Labs: Abnormal lab results RBC 5.50 M/mcL (3.82-4.97) H 03/17/17 21:49 Hgb 16.8 g/dL (11.5-15.4) H 03/17/17 21:49 Hct 48.8 % (35.3-44.9) H 03/17/17 21:49 Immature Plt Fraction 7.6 % (1.1-6.1) H 03/17/17 21:49 Salicylates < 5.0 mg/dL (15-30) L 03/17/17 21:49 Acetaminophen < 1.0 mcg/mL (10-30) L 03/17/17 21:49 U Benzodiazepines Scrn Positive ng/mL (Rapunm=212) H 03/18/17 00:00 Ethyl Alcohol 61 mg/dL (0-10) H 03/17/17 21:49 Attestation Statement - Attestation Attestation: I have personally performed a face to face evaluation on this patient. I have reviewed and agree with the care plan. History and Exam by me shows: Patient emergency department with suicidal ideation after the loss of a family member. Exam nonfocal. Plan. Evaluated by one a who admitted the patient.
[2017-03-17 21:55] LABS: Basophils # 0.1 K/mcL (0.0-0.2); Basophils % 0.8 %; Eosinophils # 0.3 K/mcL (0.0-0.6); Eosinophils % 3.2 %; Hematocrit 48.8 % (35.3-44.9); Hemoglobin 16.8 g/dL (11.5-15.4); Immature Granulocytes % 1.4 % (0-4); Immature Platelets 7.6 % (1.1-6.1); Lymphocytes # 2.5 K/mcL (0.6-4.6); Lymphocytes % 30.1 %; Mean Corpuscular HGB Conc 34.4 g/dL (31.6-35.5); Mean Corpuscular Hemoglobin 30.5 pg (28.0-33.3); Mean Corpuscular Volume 88.7 fL (83.0-100.0); Mean Platelet Volume 10.8 fL (9.4-12.4); Monocytes # 0.8 K/mcL (0.0-1.3); Monocytes % 8.9 %; Neutrophils # 4.7 K/mcL (1.6-8.9); Platelet Count 209 K/mcL (140-400); Segmented Neutrophils % 55.6 %
[2017-03-17 22:10] LABS: BUN/Creatinine Ratio 14 (6-26); Blood Urea Nitrogen 13 mg/dL (7-20); Calcium 10.1 mg/dL (8.6-10.8); Carbon Dioxide 26 mEq/L (19-29); Chloride 103 mEq/L (98-109); Ethanol 61 mg/dL (0-10); Glucose 99 mg/dL (70-99); Osmolality,Calculated 288 (280-300); Potassium 3.9 mEq/L (3.5-4.5); Sodium 139 mEq/L (136-145); eGFR For African Americans > 60 (> 60); eGFR For Non-African Americans > 60 (> 60)
[2017-03-17 22:11] LABS: Acetaminophen < 1.0 mcg/mL (10-30); Salicylate < 5.0 mg/dL (15-30)
[2017-03-18 00:15] LABS: Bilirubin,Urine Negative (Negative); Blood,Urine Negative (Negative); Clarity,Urine Clear (Clear); Color,Urine Yellow (Yellow); Glucose,Urine (UA) Normal (Normal); Ketones,Urine Negative (Negative); Leukocyte Esterase,Urine Negative (Negative); Nitrite,Urine Negative (Negative); Protein,Urine Negative (Neg-Trace); Specific Gravity,Urine 1.011 (1.010-1.025); Urobilinogen,Urine Normal (Normal)
[2017-03-18 00:22] LABS: Amphetamine Screen,Urine Negative ng/mL (Cutoff=1000); Barbiturate Screen,Urine Negative ng/mL (Cutoff=200); Benzodiazepines Screen,Urine Positive ng/mL (Cutoff=200); Cannabinoid Screen,Urine Negative ng/mL (Cutoff = 50); Cocaine Screen,Urine Negative ng/mL (Cutoff= 300); Opiate Screen,Urine Negative ng/mL (Cutoff=300); Phencyclidine Screen,Urine Negative ng/mL (Cutoff=25)
[2017-03-18] MEDS ORDERED: MOM Conc 10 ML UD.LIQ PO PRN (02:34)
[2017-03-18] MEDS ORDERED: traZODone 50 MG TABLET PO PRN (02:34)
[2017-03-18] MEDS ORDERED: *HR* LORazepam 2 MG/ML VIAL IM PRN (02:34)
[2017-03-18] MEDS ORDERED: hydrOXYzine pamoate 25 MG CAPSULE PO PRN (02:34)
[2017-03-18] MEDS ORDERED: *HR* LORazepam 1 MG TABLET PO PRN (02:34)
[2017-03-18] MEDS ORDERED: Mag Hydrox/Al Hydrox/Simeth 30 ML UDC PO PRN (02:34)
[2017-03-18] MEDS ORDERED: Haloperidol Lactate 5 MG/ML VIAL IM PRN (02:34)
[2017-03-18] MEDS: Ibuprofen 400 MG TABLET PO PRN (03:04)
[2017-03-18] MEDS: Nicotine 21 MG PATCH.TD24 TD SCH (09:15)
--- NOTE | 2017-03-18 13:32 | Psychiatry History & Physical ---
Date of Encounter: 03/18/17 Time of Encounter: 12:50 History of Present Illness Patient Stated Chief Complaint: my depression is getting worse, i want to cut myself. Medicare Admission Attestation: For traditional Medicare patients the provided hospital inpatient services are reasonable and necessary and in the case of services not specified as inpatient -only under 42 CFR 419.22 (n), that they are appropriately provided as inpatient services in accordance 42 CFR 412.3. For Critical Access Hospital the patient may reasonably be expected to be discharged or transferred to a hospital within 96 hours after admission to the Critical Access Hospital. Admitted From: Emergency Dept Plans for Post Hospital Care: Home History of Present Illness: Ms. Card is a 51 year old W female evaluated today, she has h/o Depression , anxiety and suicidal attempts. she was bouht in to ER by EMS for depression and suicidal ideations. Patient 's brother passsed yesterday from stroke and heroin use. she is devasted and severly depressed as was very close to him , states he lied to me he said he had stopped using heroin but he didnot, i want to cut my self, I am upset that will never get closer as no viewing for my brother , he is getting cremenated. she at present vey depressed, teary eyes, dishelved, looking down , suicidal with plan , sleep not good . feels medicine she has been taking for depression donot seem to help and she has sleep problems for ever. she has anxiety which includes generalized and panic attacks. denies psychosis , no manic episode . She denies any drug use for one year now, had used cocain in past. She has out patient psychiatrist and counsellor, patient has h/o self mutilating behaviours. has been compliant with meds. She has tried sevral different meds but doesnot remember names at this time. Past Med Surg Social Fam HX - Past Medical History Medical history: GERD, hypertension - Past Psychiatric History Psychiatric history: Reports: anxiety, depression, panic disorder, prior suicide attempt, previous psychiatric hospitalization Family psychiatric history: Yes Family History of Suicide: Attempted (her aunt was dx schizophrenia) - Past Surgical History Surgical History: hysterectomy - Social History Smoking Status: Current every day smoker Smokeless Tobacco Status: No Alcohol use: occasionally Drug use: none Medications & Allergies Benztropine [Cogentin] 1 mg PO BID 04/25/16 [History] TraZODone 300 mg PO HS 04/25/16 [History] rOPINIRole [Requip] 1 mg PO HS 04/25/16 [History] Escitalopram [Lexapro] 20 mg PO DAILY 07/16/16 [History] Latanoprost [Xalatan] 1 drop OP QPM 07/27/16 [History] Buspirone HCl [Buspar] 15 mg PO BID 10/23/16 [History] Oxybutynin [Ditropan] 5 mg PO QID 10/23/16 [History] Pantoprazole Sodium [Protonix] 40 mg PO DAILY 10/23/16 [History] amLODIPine [Norvasc] 5 mg PO DAILY 10/23/16 [History] ALPRAZolam [Xanax 0.5 MG Tablet] 0.5 mg PO BID PRN 03/18/17 [History] Polyethylene Glycol 3350 [MiraLAX Powder Bulk 17.9 Oz] 1 scoop PO DAILY [History] Ranitidine HCl [Heartburn Relief] 150 mg PO BID 03/18/17 [History] Sucralfate [Carafate] 1 gm PO QID 03/18/17 [History] hydrOXYzine HCl [Hydroxyzine HCl] 50 mg PO TID 03/18/17 [History] Allergies No Known Allergies Allergy (Verified 10/03/16 15:06) Review of Systems Psychiatric: Reports: depression, anxiety, abnormal sleep pattern, suicidal ideation, change in appetite, difficulty concentrating, hopelessness, irritability, panic attacks Mental Status Exam Patient orientation: Yes Person, Yes Time, Yes Place Level of alertness: Alert Patient appearance: Unkempt, Disheveled Behavior: anxious, tearful, withdrawn Psychomotor activity: Slowed Eye contact: Minimal Contact Mood description: Depressed, Anxious Affect description: congruent with mood, tearful, dysphoric Speech pattern: Slowed Speech volume: Soft/Quiet Thought process: Intact Thought content: Yes Suicidal ideation, Yes Guilt Attention span: Unable to Sustain Attention Memory description: Grossly Intact Patient reliability: Reliable Historian Intelligence estimate: Average Judgment: Poor Insight: Partial Exam - HEENT Eye exam IM: Present: normal appearance (patient had physical exam in ER ) ENT exam IM: Present: normal exam - Neurological Neurological exam IM: Present: CN II-XII intact Results - Vital Signs Vital signs: Temp Pulse Resp BP Pulse Ox 97.7 F 62 16 98/67 92 03/18/17 09:00 03/18/17 09:00 03/18/17 09:00 03/18/17 09:00 03/17/17 21:07 - Labs Labs: Laboratory Last Values WBC 8.4 K/mcL (4.3-11.1) 03/17/17 21:49 RBC 5.50 M/mcL (3.82-4.97) H 03/17/17 21:49 Hgb 16.8 g/dL (11.5-15.4) H 03/17/17 21:49 Hct 48.8 % (35.3-44.9) H 03/17/17 21:49 MCV 88.7 fL (83.0-100.0) 03/17/17 21:49 MCH 30.5 pg (28.0-33.3) 03/17/17 21:49 MCHC 34.4 g/dL (31.6-35.5) 03/17/17 21:49 RDW 14.0 % (11.5-14.5) 03/17/17 21:49 Plt Count 209 K/mcL (140-400) 03/17/17 21:49 MPV 10.8 fL (9.4-12.4) 03/17/17 21:49 Immature Gran % 1.4 % (0-4) 03/17/17 21:49 Seg Neutrophils % 55.6 % 03/17/17 21:49 Lymphocytes % 30.1 % 03/17/17 21:49 Monocytes % 8.9 % 03/17/17 21:49 Eosinophils % 3.2 % 03/17/17 21:49 Basophils % 0.8 % 03/17/17 21:49 Neutrophils # 4.7 K/mcL (1.6-8.9) 03/17/17 21:49 Lymphocytes # 2.5 K/mcL (0.6-4.6) 03/17/17 21:49 Monocytes # 0.8 K/mcL (0.0-1.3) 03/17/17 21:49 Eosinophils # 0.3 K/mcL (0.0-0.6) 03/17/17 21:49 Basophils # 0.1 K/mcL (0.0-0.2) 03/17/17 21:49 Immature Plt Fraction 7.6 % (1.1-6.1) H 03/17/17 21:49 Sodium 139 mEq/L (136-145) 03/17/17 21:49 Potassium 3.9 mEq/L (3.5-4.5) 03/17/17 21:49 Chloride 103 mEq/L (98-109) 03/17/17 21:49 Carbon Dioxide 26 mEq/L (19-29) 03/17/17 21:49 BUN 13 mg/dL (7-20) 03/17/17 21:49 Creatinine 0.93 mg/dL (0.57-1.11) 03/17/17 21:49 Est GFR ( Amer) > 60 (> 60) 03/17/17 21:49 Est GFR (Non-Af Amer) > 60 (> 60) 03/17/17 21:49 BUN/Creatinine Ratio 14 (6-26) 03/17/17 21:49 Glucose 99 mg/dL (70-99) 03/17/17 21:49 Calculated Osmolality 288 (280-300) 03/17/17 21:49 Calcium 10.1 mg/dL (8.6-10.8) 03/17/17 21:49 Urine Color Yellow (Yellow) 03/18/17 00:00 Urine Clarity Clear (Clear) 03/18/17 00:00 Urine pH 6.0 pH Units (5.0-8.0) 03/18/17 00:00 Ur Specific Ola 1.011 (1.010-1.025) 03/18/17 00:00 Urine Protein Negative mg/dL (Neg-Trace) 03/18/17 00:00 Urine Glucose (UA) Normal mg/dL (Normal) 03/18/17 00:00 Urine Ketones Negative mg/dL (Negative) 03/18/17 00:00 Urine Blood Negative (Negative) 03/18/17 00:00 Urine Nitrite Negative (Negative) 03/18/17 00:00 Urine Bilirubin Negative (Negative) 03/18/17 00:00 Urine Urobilinogen Normal mg/dL (Normal) 03/18/17 00:00 Ur Leukocyte Esterase Negative (Negative) 03/18/17 00:00 Salicylates < 5.0 mg/dL (15-30) L 03/17/17 21:49 Urine Opiates Screen Negative ng/mL (Sebcwd=573) 03/18/17 00:00 Acetaminophen < 1.0 mcg/mL (10-30) L 03/17/17 21:49 Ur Barbiturates Screen Negative ng/mL (Ntlanz=649) 03/18/17 00:00 Ur Phencyclidine Scrn Negative ng/mL (Cutoff=25) 03/18/17 00:00 Ur Amphetamines Screen Negative ng/mL (Bcrmko=1878) 03/18/17 00:00 U Benzodiazepines Scrn Positive ng/mL (Mcfxqk=095) H 03/18/17 00:00 Urine Cocaine Screen Negative ng/mL (Cutoff= 300) 03/18/17 00:00 U Marijuana (THC) Screen Negative ng/mL (Cutoff = 50) 03/18/17 00:00 Ethyl Alcohol 61 mg/dL (0-10) H 03/17/17 21:49 Assessment and Plan (1) Major depress dis, severe Current visit: Yes Status: Acute Plan: Admit inpatient for safety and stabilization, Close observation, Suicide Precautions per unit protocol, Encourage participation in unit milieu, Group Therapy Risks, benefits, side effects, alternatives discussed w/pt: Yes Patient agreeable to treatment: Yes (2) Suicidal ideation Current visit: Yes Status: Acute Plan: Admit inpatient for safety and stabilization, Close observation, Suicide Precautions per unit protocol, Encourage participation in unit milieu, Group Therapy Risks, benefits, side effects, alternatives discussed w/pt: Yes Patient agreeable to treatment: Yes Plans for Post Hospital Care: Home (3) Generalized anxiety disorder Current visit: Yes Status: Chronic Plan: Admit inpatient for safety and stabilization Risks, benefits, side effects, alternatives discussed w/pt: Yes Patient agreeable to treatment: Yes Plans for Post Hospital Care: Home
[2017-03-18] MEDS ORDERED: Polyethylene Glycol 3350 255 GM POWDER PO SCH (14:00)
[2017-03-18] MEDS: Famotidine 20 MG TABLET PO SCH ×2 (15:03→20:51)
[2017-03-18] MEDS: Sucralfate 1 GM TABLET PO SCH ×2 (15:04→20:52)
[2017-03-18] MEDS: amLODIPine 5 MG TABLET PO SCH (15:04)
[2017-03-18] MEDS: hydrOXYzine pamoate 25 MG CAPSULE PO SCH ×2 (15:05→20:51)
[2017-03-18] MEDS: ALPRAZolam 0.5 MG TABLET PO PRN ×2 (15:11→20:50)
[2017-03-18] MEDS ORDERED: Latanoprost 2.5 ML BOTTLE BOTH EYES SCH (18:00)
[2017-03-18] MEDS: rOPINIRole 1 MG TABLET PO SCH (20:51)
[2017-03-18] MEDS: traZODone 50 MG TABLET PO SCH (20:51)
[2017-03-18] MEDS: Latanoprost 2.5 ML BOTTLE BOTH EYES SCH (20:54)
[2017-03-19] MEDS: Sucralfate 1 GM TABLET PO SCH ×4 (08:45→21:00)
[2017-03-19] MEDS: Famotidine 20 MG TABLET PO SCH ×2 (08:45→21:00)
[2017-03-19] MEDS: amLODIPine 5 MG TABLET PO SCH (08:46)
[2017-03-19] MEDS: hydrOXYzine pamoate 25 MG CAPSULE PO SCH ×3 (08:46→21:00)
[2017-03-19] MEDS: Nicotine 21 MG PATCH.TD24 TD SCH (08:46)
[2017-03-19] MEDS: BuPROPion XL (24 HR) 150 MG TABLET PO SCH (08:46)
[2017-03-19] MEDS: Ibuprofen 400 MG TABLET PO PRN ×2 (08:51→21:01)
--- NOTE | 2017-03-19 11:43 | Psychiatry Progress Note ---
Date of Encounter: 03/19/17 Time of Encounter: 11:31 Subjective Interval history: Patient seen today , case d/w staff. remains isolative, no interaction with others. She states slept fairly well, i do not want to talk to any one here looks like they are in a republican and i feel like i can not do all these things. feels depressed and anxious and states i talked to my parents today and i felt angry with my father as it is not bothering him. she became tearful , remains sad., tearful , denies suicidal ideations but is hopeless, guilt and depressed. encouraged and counselled to attend groups and to come out of her room. Review of Systems Psychiatric: Reports: depression, anxiety, abnormal sleep pattern, change in appetite, difficulty concentrating, hopelessness, irritability Objective: Exam Patient orientation: Yes Person, Yes Time, Yes Place Level of alertness: Alert Patient appearance: Unkempt Behavior: cooperative, withdrawn Psychomotor activity: Slowed Eye contact: Minimal Contact Mood description: Depressed Affect description: congruent with mood, tearful Speech pattern: Slowed Speech volume: Soft/Quiet Thought process: Intact Thought content: Yes Preoccupation Judgment: Limited Insight: Partial Results - Vital Signs Vital Signs: Temp Pulse Resp BP Pulse Ox 97.2 F L 70 16 129/80 92 03/19/17 09:00 03/19/17 09:00 03/19/17 09:00 03/19/17 09:00 03/17/17 21:07 Assessment and Plan (1) Major depress dis, severe Current visit: Yes Status: Acute Risks, benefits, side effects, alternatives discussed w/pt: Yes Patient agreeable to treatment: Yes (2) Suicidal ideation Current visit: Yes Status: Acute Risks, benefits, side effects, alternatives discussed w/pt: Yes Patient agreeable to treatment: Yes (3) Generalized anxiety disorder Current visit: Yes Status: Chronic Risks, benefits, side effects, alternatives discussed w/pt: Yes Patient agreeable to treatment: Yes Consult Discharge Plan - Plan
[2017-03-19] MEDS: ALPRAZolam 0.5 MG TABLET PO PRN ×2 (13:11→21:01)
[2017-03-19] MEDS: traZODone 50 MG TABLET PO SCH (20:59)
[2017-03-19] MEDS: Latanoprost 2.5 ML BOTTLE BOTH EYES SCH (20:59)
[2017-03-19] MEDS: rOPINIRole 1 MG TABLET PO SCH (21:00)
[2017-03-20] MEDS: Sucralfate 1 GM TABLET PO SCH ×4 (07:43→20:43)
[2017-03-20] MEDS: amLODIPine 5 MG TABLET PO SCH (08:55)
[2017-03-20] MEDS: Famotidine 20 MG TABLET PO SCH ×2 (08:55→20:43)
[2017-03-20] MEDS: BuPROPion XL (24 HR) 150 MG TABLET PO SCH (08:55)
[2017-03-20] MEDS: hydrOXYzine pamoate 25 MG CAPSULE PO SCH ×3 (08:55→20:43)
[2017-03-20] MEDS: Nicotine 21 MG PATCH.TD24 TD SCH (08:56)
[2017-03-20] MEDS: Ibuprofen 400 MG TABLET PO PRN ×2 (09:03→19:32)
[2017-03-20] MEDS: ALPRAZolam 0.5 MG TABLET PO PRN ×2 (11:15→17:48)
--- NOTE | 2017-03-20 14:39 | Psychiatry Progress Note ---
Date of Encounter: 03/20/17 Time of Encounter: 14:00 Subjective Interval history: Patient seen today for follow-up. Previous notes reviewed. Patient reports that she is very shocked about the of her brother and she is handling this poorly. She does feel depressed and does not like to interact with peers and staff. She states she does not feel hopeless anymore but still very overwhelmed by grief and anxiety. "Nobody else cared about him because he did drugs." Patient reports poor sleep here in the hospital because of interruptions. She is not sure if she is ready to leave the hospital or not but she does not like the environment here. Review of Systems Psychiatric: Reports: depression, anxiety, abnormal sleep pattern, change in appetite, anhedonia, difficulty concentrating, hopelessness, irritability, mood swings Objective: Exam Patient orientation: Yes Person, Yes Time, Yes Place Level of alertness: Alert Patient appearance: Appropriate Behavior: cooperative, guarded Psychomotor activity: Normal Eye contact: Diverts Contact Mood description: Depressed Affect description: congruent with mood, tearful, dysphoric Speech pattern: Normal rate, Normal rhythm, Normal tone Speech volume: Normal Thought process: Intact, Goal Oriented Thought content: No Suicidal ideation, No Homicidal ideation Perceptual disturbances: No Auditory hallucinations, No Visual hallucinations Judgment: Limited Insight: Minimal Results - Vital Signs Vital Signs: Temp Pulse Resp BP Pulse Ox 97.8 F 80 16 139/92 92 03/20/17 09:00 03/20/17 09:00 03/20/17 09:00 03/20/17 09:00 03/17/17 21:07 Assessment and Plan (1) Major depress dis, severe Current visit: Yes Status: Acute Plan: Continue hospitalization, Close observation, Suicide Precautions per unit protocol, Encourage participation in unit milieu, Group Therapy, Monitor sleep, Monitor appetite Additional Plan: Continue current meds. Encourage group attendance and discussion of grief issues. Monitor sleep and appetite. Risks, benefits, side effects, alternatives discussed w/pt: Yes Patient agreeable to treatment: Yes (2) Generalized anxiety disorder Current visit: Yes Status: Chronic Plan: Continue hospitalization, Close observation, Suicide Precautions per unit protocol, Encourage participation in unit milieu, Group Therapy, Monitor sleep, Monitor appetite Additional Plan: Encourage positive coping strategies. Continue current meds. Risks, benefits, side effects, alternatives discussed w/pt: Yes Patient agreeable to treatment: Yes (3) Bereavement Current visit: Yes Status: Acute Plan: Continue hospitalization, Close observation, Suicide Precautions per unit protocol, Encourage participation in unit milieu, Group Therapy, Monitor sleep, Monitor appetite Additional Plan: Encourage patient to discuss issues with grief. Outpatient counseling. Consult Discharge Plan - Plan Referrals: Walker Marshall MD [Partnered Physician] -
[2017-03-20] MEDS: rOPINIRole 1 MG TABLET PO SCH (20:43)
[2017-03-20] MEDS: Latanoprost 2.5 ML BOTTLE BOTH EYES SCH (20:44)
[2017-03-20] MEDS: traZODone 50 MG TABLET PO SCH (20:44)
[2017-03-21] MEDS: hydrOXYzine pamoate 25 MG CAPSULE PO SCH (08:25)
[2017-03-21] MEDS: BuPROPion XL (24 HR) 150 MG TABLET PO SCH (08:26)
[2017-03-21] MEDS: Sucralfate 1 GM TABLET PO SCH ×2 (08:26→12:01)
[2017-03-21] MEDS: Famotidine 20 MG TABLET PO SCH (08:26)
[2017-03-21] MEDS: Ibuprofen 400 MG TABLET PO PRN (08:27)
[2017-03-21] MEDS: amLODIPine 5 MG TABLET PO SCH (08:28)
[2017-03-21] MEDS: ALPRAZolam 0.5 MG TABLET PO PRN ×2 (08:28→12:37)
[2017-03-21] MEDS: Nicotine 21 MG PATCH.TD24 TD SCH (08:29)
--- NOTE | 2017-03-21 08:42 | Discharge Summary ---
Date of Encounter: 03/21/17 Time of Encounter: 08:00 Diagnosis - Discharge Diagnosis (1) Major depress dis, severe Priority: Primary Status: Acute (2) Generalized anxiety disorder Priority: Secondary Status: Chronic (3) Bereavement Priority: Secondary Status: Acute Medications - Discharge Medications Prescriptions: BuPROPion XL (24 HR) [Wellbutrin Xl] 150 mg PO DAILY #30 traZODone [TraZODone] 50 mg PO HS PRN #30 tab PRN Reason: Insomnia Benztropine [Cogentin] 1 mg PO BID 04/25/16 [History] TraZODone 300 mg PO HS 04/25/16 [History] rOPINIRole [Requip] 1 mg PO HS 04/25/16 [History] Escitalopram [Lexapro] 20 mg PO DAILY 07/16/16 [History] Latanoprost [Xalatan] 1 drop OP QPM 07/27/16 [History] Buspirone HCl [Buspar] 15 mg PO BID 10/23/16 [History] Oxybutynin [Ditropan] 5 mg PO QID 10/23/16 [History] Pantoprazole Sodium [Protonix] 40 mg PO DAILY 10/23/16 [History] amLODIPine [Norvasc] 5 mg PO DAILY 10/23/16 [History] ALPRAZolam [Xanax 0.5 MG Tablet] 0.5 mg PO BID PRN 03/18/17 [History] Polyethylene Glycol 3350 [MiraLAX Powder Bulk 17.9 Oz] 1 scoop PO DAILY [History] Ranitidine HCl [Heartburn Relief] 150 mg PO BID 03/18/17 [History] Sucralfate [Carafate] 1 gm PO QID 03/18/17 [History] hydrOXYzine HCl [Hydroxyzine HCl] 50 mg PO TID 03/18/17 [History] BuPROPion XL (24 HR) [Wellbutrin Xl] 150 mg PO DAILY #30 03/21/17 [Rx] traZODone [TraZODone] 50 mg PO HS PRN #30 tab 03/21/17 [Rx] Allergies No Known Allergies Allergy (Verified 10/03/16 15:06) Provider Date of admission: 03/20/17 08:04 Primary care physician: PCP NONE Discharging clinician: Gabbie Andrade Assessment and Plan - Patient/Caregiver Discharge Instructions Activity: resume usual activities as tolerated Diet: regular diet - Follow up Plan Follow up with: Stanislav Bourne [facility] [Outside] (The above appointment is with Avtar Luis for outpatient mental health counseling.) [facility] [Outside] - 05/09/17 3:00 pm (The above appointment is with Samra Guevara for outpatient psychiatric assessment and medication management.) Functional capacity at discharge: independent ambulation Overall status at discharge: Stable Disposition: Home, Self-Care Hospital Course Hospital course: Ms. Card is a 51 year old female with a history of depression, anxiety, alcohol dependence who presented to the hospital with increasing depression after the recent and sudden of her stepbrother. Patient was admitted to [facility] for psychiatric stabilization. She was incorporated into the therapeutic milieu and offer group and individual as well as recreational therapy. Patient was also offered psychoeducational materials and supportive therapy. Throughout the course of the hospital stay the patient's mood started to improve. She was started on Wellbutrin in addition to her other home psychiatric medications. She was also offered trazodone for sleep when necessary. Patient admits that she does not handle stress well. She was offered materials and outpatient resources for grief. Patient was restarted on home medications and she tolerated these meds well. She did attend some group and unit activities but not every group that was offered. Patient reports having difficulty in social situations. At the time of discharge she denied suicidal or homicidal ideation, intent, or plan. She denied auditory or visual hallucinations. She is willing to follow up with her outpatient doctor for further titration of medications. She is discharged in stable condition. - Time Spent with Patient Total time spent providing and/or coordinating discharge services: Less than 30 minutes Quality - Multiple Antipsychotics Patient discharged on 2 or more antipsychotic medications: No Procedures - Procedures Procedures: Medication Management, Crisis Stabilization, Supportive Therapy, Group Therapy, Psychoeducational Therapy Mental Status Exam - Mental Status Exam Patient orientation: Yes Person, Yes Time, Yes Place Level of alertness: Alert Patient appearance: Appropriate, Well Groomed Behavior: calm, cooperative Psychomotor activity: Normal Eye contact: Maintains Eye Contact Mood description: Euthymic/stable Affect description: congruent with mood, full range Speech pattern: Normal rate, Normal rhythm, Normal tone Speech Volume: Normal Thought process: Linear, Goal Oriented Thought Content: No Suicidal ideation, No Homicidal ideation, No Overt delusions Perceptual Disturbances: No Auditory hallucinations, No Visual hallucinations Judgment: Limited Insight: Partial
[2017-03-21 09:35] VITALS: BP 122/87
== END 2017-03-21 14:00 | disposition home or self-care (01) | DRG 751 ==
LOC: EMEROO 21:05 → 1ANU 21:05
PROVIDERS: ADMIT Psychiatry & Neurology Psychiatry; ATTEND Psychiatry & Neurology Psychiatry

== ENCOUNTER 2018-05-14 06:32 | Inpatient (IN) ==
--- NOTE | 2018-05-13 21:31 | Discharge Summary ---
<Phong Mejia - Last Filed: 05/14/18 07:54> Orders not resulted at time of discharge: Pending orders 05/14/18 00:01 XR shoulder complete LT [XR] Routine H/H [Hemoglobin and Hematocrit] [HEME] Routine 05/14/18 07:27 US anesthesia pain block [US] Stat Date of Encounter: 05/14/18 - Discharge Diagnosis (1) Morbid obesity with BMI of 40.0-44.9, adult Priority: Secondary Status: Chronic (2) Alcohol dependence Priority: Secondary Status: Chronic Qualifiers: Substance use status: with intoxication Complication of substance-induced condition: with unspecified complication Qualified Code(s): F10.229 - Alcohol dependence with intoxication, unspecified (3) Cocaine abuse Priority: Secondary Status: Chronic (4) Major depress dis, severe Priority: Secondary Status: Chronic (5) Rotator cuff arthropathy of left shoulder Priority: Primary Status: Chronic (6) Status post reverse total arthroplasty of left shoulder Priority: Primary Status: Acute (7) Anxiety Priority: Secondary Status: Chronic (8) GERD (gastroesophageal reflux disease) Priority: Secondary Status: Chronic Qualifiers: Esophagitis presence: esophagitis presence not specified Qualified Code(s) : K21.9 - Gastro-esophageal reflux disease without esophagitis (9) HTN (hypertension) Priority: Secondary Status: Chronic Qualifiers: Hypertension type: essential hypertension Qualified Code(s): I10 - Essential (primary) hypertension (10) Tobacco use Priority: Secondary Status: Chronic - Hospital Course Hospital course: Ms. Card is a 52 year old female - Time Spent with Patient Total time spent providing and/or coordinating discharge services: - Discharge Medications Home Medications: OxyCODONE Immed Rel [Roxicodone 5 MG] 5 mg PO Q6HR PRN 7 Days #28 tablet [Rx] ALPRAZolam [Xanax 0.5 MG Tablet] 0.5 mg PO TID PRN 05/14/18 [History] Albuterol Sulfate [Ventolin Hfa] 2 puff IH Q6H PRN 05/14/18 [History] Benzonatate [Tessalon] 200 mg PO TID PRN 05/14/18 [History] DiphenhydraMINE [Benadryl] 25 mg PO Q8HR PRN 05/14/18 [History] Escitalopram [Lexapro] 20 mg PO BID 05/14/18 [History] Famotidine [Pepcid] 40 mg PO BID 05/14/18 [History] Fluticasone Propionate Nasal [Flonase] 2 spr NS DAILY PRN 05/14/18 [History] Gabapentin [Neurontin] 800 mg PO TID 05/14/18 [History] Latanoprost [Xalatan] 1 drop BOTH EYES HS 05/14/18 [History] Loratadine [Allergy Relief] 10 mg PO DAILY PRN 05/14/18 [History] Methocarbamol [Robaxin] 750 mg PO Q8HR PRN 05/14/18 [History] Omeprazole [PriLOSEC] 20 mg PO DAILY 05/14/18 [History] Ondansetron HCl [Zofran] 4 mg PO Q8HR PRN 05/14/18 [History] Oxybutynin [Ditropan] 5 mg PO BID 05/14/18 [History] Pantoprazole Sodium [Protonix] 40 mg PO DAILY 05/14/18 [History] Tizanidine HCl 2 mg PO TID PRN 05/14/18 [History] Allergies/Adverse Reactions: 3 Allergy/AdvReac Type Severity Reaction Status Date / Time No Known Allergies Allergy Verified 03/13/18 15:07 Primary care physician: Walker Marshall MD - Patient Status Disposition: Home Health Service Condition: Good - Discharge Instructions Instructions: Shoulder Arthroplasty (DC) Follow Up With: Walker Marshall MD [Primary Care Provider] - Additional Instructions: MYRINGOTOMY WITH EAR TUBE INSERTION POSTOPERATIVE INSTRUCTIONS 1. There may be drainage (clear to slightly bloody only) for the first 2-3 days postoperatively. Clean any drainage from the outside of the ear ONLY with hydrogen peroxide on a Q-tip. Do not worry about cleaning the inside of the ear canal. If the drainage is different than described above, or persists beyond 48 hours, please notify our office at [phone]. 5. Use eardrops as prescribed by your doctor following surgery. Please follow the instructions below: a. For the first 3 days after surgery, use 3-4 eardrops 3 times daily in LEFT ear. After 3 days, use of drops only if you suspect that you have gotten water in the ears and have pain. Afterwards, save the remaining drops in your refrigerator. Always warm drops in your fist before using in the ear. b. Use the prescribed drops only if you suspect water contamination of the ear(s). Use the 1-2 drops in that ear at the time of exposure. If any problems persist, call our office at [phone]. NURSING HOME ASSISTANT CARE OF THE EAR 1. The pressure equalization tube generally stay in the ear 6-24 months. During that period of time the only extra care acquired as to prevent non- chlorinated water (such as steele or pond water) from getting into the ear. Surface swimming in a swimming pool does not require extra ear protection! If you swim in a steele or red devil then CORRINA earplugs may be purchased from the local drugstore. These are soft silicone earplug secondly molded to fit the ears and make a watertight seal. 2. If you ever noticed pain or drainage from the ears call to make an appointment at [address] [place] [address] or call for an appointment with your family physician. This could indicate an ear infection. In addition, bloody drainage may also be noted from the ear. This is not an emergency! This simply indicates that there is probably an ear infection present. 3. Dr. Ward will check the ears 1 month postoperatively, after this they will be checked every year. If no appointment is scheduled call to make an appointment at [address] [place] [address]. <Emely Shaikh - Last Filed: 05/14/18 16:29> Orders not resulted at time of discharge: Vital Signs Temp Pulse Resp BP Pulse Ox 05/14/18 14:55 97.6 F 90 16 127/79 91 05/14/18 13:31 98.0 F 93 16 108/64 94 05/14/18 12:35 98.4 F 86 16 128/82 92 05/14/18 11:30 97.8 F 84 16 135/85 92 05/14/18 11:13 95 05/14/18 10:41 97.7 F 78 14 112/75 95 05/14/18 10:22 98.2 F 78 18 118/88 95 05/14/18 10:20 97.6 F 79 14 121/84 94 05/14/18 10:12 79 18 128/78 95 05/14/18 10:02 98.2 F 82 18 126/73 94 05/14/18 09:52 82 16 124/74 94 05/14/18 09:42 81 16 140/86 93 05/14/18 09:37 80 16 146/90 94 05/14/18 09:32 97.5 F L 88 16 141/102 96 05/14/18 08:07 77 154/92 97 05/14/18 08:02 77 172/91 98 05/14/18 07:26 18 146/79 98 05/14/18 07:00 98.6 F 74 18 146/79 98 Intake and Output 05/14/18 05/14/18 05/14/18 07:59 15:59 23:59 Intake Total 1380 / 1380 Output Total 101 / 101 Balance 1279 / 1279 Intake: IV Fluids 1020 / 1020 Lactated Ringers 1,000 ML @ 25 1000 / 1000 mls/hr IVC .Q24H LILLY Rx#: [id number] Ancef Syringe 2,000 MG/20 ML 2, 20 / 20 000 mg In 20 ml @ 200 mls/hr IVPB PREOP ONE Rx#:[id number] Oral 360 / 360 Output: Estimated Blood Loss 101 / 101 Other: Meal Lunch Percent of Meal Consumed 95% # Voids 1 Weight 119.748 kg Patient Weight 05/14/18 23:59 Weight 119.748 kg Short CBC 05/14/18 Range/Units 10:30 Hgb 14.1 D (11.5-15.4) g/dL Hct 42.6 (35.3-44.9) % Date of Encounter: 05/14/18 Time of Encounter: 16:23 - Discharge Diagnosis (1) Status post reverse total arthroplasty of left shoulder Priority: Primary Status: Acute Comments: Opsite dressing, leave intact until first post-operative visit. Zipline in place, plan to remove at post-operative day #14-16. If dressing becomes >50% saturated, contact office, remove dressing and place appropriate dressing in its place. Do not allow for dressing to get wet. Shoulder Precautions x 6 weeks. Apply cold therapy wrap 3-6x/day for 20 minutes at a time. Encourage ambulation throughout the day. Use Incentive spirometer 10x/hour. Elevate affected extremity above heart as tolerated. NWB to affected upper extremity x 6 weeks. Will remove brace at first post-operative appointment. OK to remove during PT/ OT and Home exercises. (2) Rotator cuff arthropathy of left shoulder Priority: Primary Status: Chronic (3) HTN (hypertension) Priority: Secondary Status: Chronic Qualifiers: Hypertension type: essential hypertension Qualified Code(s): I10 - Essential (primary) hypertension (4) Anxiety Priority: Secondary Status: Chronic (5) Tobacco use Priority: Secondary Status: Chronic (6) Obesity Priority: Secondary Status: Chronic Qualifiers: Obesity type: due to excess calories Obesity classification: adult class 3 (BMI >= 40) Serious obesity comorbidity presence: unspecified whether serious comorbidity present Body mass index: BMI 40.0-44.9 Qualified Code(s): E66.01 - Morbid (severe) obesity due to excess calories; Z68.41 - Body mass index (BMI) 40.0-44.9, adult (7) GERD (gastroesophageal reflux disease) Priority: Secondary Status: Chronic Qualifiers: Esophagitis presence: esophagitis presence not specified Qualified Code(s) : K21.9 - Gastro-esophageal reflux disease without esophagitis (8) Alcohol use Priority: Secondary Status: Chronic (9) Anxiety Priority: Secondary Status: Chronic - Hospital Course Hospital course: Ms. Card is a 52 year old female, status post Left TSR-reverse 05/14 with . Patient had uneventful postoperative course. Stable for discharge. Afebrile, vital signs stable. Labs reviewed. H/H - stable, asymptomatic Pain control: adequate Participating in OT. All questions and concerns addressed. Educated on use of incentive spirometer. Encouraged ambulation and proper hydration. Patient educated on post-operative restrictions and post-operative care. Assessment and plan: Continue with postoperative care Discharge plan: Home , discharge today with Home health - Time Spent with Patient Total time spent providing and/or coordinating discharge services: Date of admission: 05/13 Primary care physician: Walker Marshall MD Discharging clinician: Emely Shaikh Anticipated date of discharge: 05/14/18 - Patient Status Functional capacity at discharge: independent ambulation Overall status at discharge: patient is progressing back to baseline
--- NOTE | 2018-05-13 21:36 | Physician Discharge Referral ---
Home Health/Hosp Referral Info Transfer to: Home Health Provider in Charge Post Discharge: PCP - Diagnosis (1) Status post reverse total arthroplasty of left shoulder Priority: Primary Status: Acute (2) Rotator cuff arthropathy of left shoulder Priority: Primary Status: Acute (3) HTN (hypertension) Status: Chronic (4) Anxiety Status: Chronic (5) Tobacco use Status: Chronic (6) Obesity Status: Chronic (7) GERD (gastroesophageal reflux disease) Status: Chronic (8) Alcohol use Status: Chronic (9) Anxiety Status: Chronic - Respiratory Orders None Smoking Cessation: Smoking cessation has been advised. For more information, call the [place] Tobacco Quit Line at 1-978-TNHM-NOW. - Diet/Nutrition Diet/Nutrition Orders: Regular - Activity Activity Orders: Up ad nuris, Ambulate - Services Needed Following services are medically necessary services: Nursing, Home Health Aide, Physical Therapy, Occupational Therapy Home Care Orders: Opsite dressing, leave intact until first post-operative visit. Zipline/in place , plan to remove at post-operative day #14-16. If dressing becomes >50% saturated, contact office, remove dressing and place appropriate dressing in its place. Do not allow for dressing to get wet. Shoulder Precautions x 6 weeks. Apply cold therapy wrap 3-6x/day for 20 minutes at a time. Encourage ambulation throughout the day. Use Incentive spirometer 10x/hour. Elevate affected extremity above heart as tolerated. NWB to affected upper extremity x 6 weeks. Will remove brace at first post-operative appointment. OK to remove during PT/ OT and Home exercises. - Transfer Medications Prescriptions: OxyCODONE Immed Rel [Roxicodone 5 MG] 5 mg PO Q6HR PRN 7 Days #28 tablet PRN Reason: Severe Pain Home Medications: rOPINIRole [Requip] 1 mg PO HS 04/25/16 [History] Escitalopram [Lexapro] 20 mg PO DAILY 07/16/16 [History] Latanoprost [Xalatan] 1 drop BOTH EYES QPM 07/27/16 [History] Oxybutynin [Ditropan] 10 mg PO BID 10/23/16 [History] Pantoprazole Sodium [Protonix] 40 mg PO DAILY 10/23/16 [History] amLODIPine [Norvasc] 5 mg PO DAILY 10/23/16 [History] ALPRAZolam [Xanax 0.5 MG Tablet] 0.5 mg PO TID PRN 03/18/17 [History] Polyethylene Glycol 3350 [MiraLAX Powder Bulk 17.9 Oz] 1 scoop PO DAILY PRN [History] Ranitidine HCl [Heartburn Relief] 150 mg PO BID 03/18/17 [History] Albuterol Sulfate [Albuterol Inhaler] 2 puff IH Q4HR PRN 12/29/17 [History] Benzonatate [Tessalon] 100 mg PO TID 12/29/17 [History] Gabapentin [Neurontin] 800 mg PO TID 12/29/17 [History] Ondansetron HCl 4 mg PO TID PRN 12/29/17 [History] predniSONE [PredniSONE] 40 mg PO DAILY 12/29/17 [History] OxyCODONE Immed Rel [Roxicodone 5 MG] 5 mg PO Q6HR PRN 7 Days #28 tablet [Rx] Allergies/Adverse Reactions: 3 Allergy/AdvReac Type Severity Reaction Status Date / Time No Known Allergies Allergy Verified 03/13/18 15:07 Certification: Further, I certify that my clinical findings support that this patient is homebound (i.e. absences from home require considerable and taxing effort and are for medical reasons or advent services or infrequently or short duration when for other reasons) because: Homebound Reason: Post-surgery restriction and or conditions limit ability to leave home Attestation: My signature below is to certify that this patient is under my care and that I, or nurse practitioner, or a physician's oceanographer assistant working with me, has a face-to -face encounter with this patient.
--- NOTE | 2018-05-14 06:45 | History & Physical Report ---
Date of Encounter: 05/14/18 Time of Encounter: 06:45 24 Hour HP Update - Instructions Instructions: If the History and Physical is less than 30 days old and was completed prior to A.M. admission and or procedure and has NOT been updated on calendar day of procedure please complete this update prior to performing procedure. - Update Patient reports changes in Medical Condition: No Changes in examination, assessment, or condition: No Changes in Medication: No Preop tests/diagnostics Reviewed: Yes Surgery Remains Indicated: Yes Consent for Planned Operative Procedure(s) Verified: Yes - Pre-Operative Checklist Preoperative Checklist Indicated: No Prophylactic Antibiotic Ordered: Yes Is VTE Prophylaxis Indicated?: Yes
[2018-05-14] MEDS ORDERED: Dexamethasone 4 MG/ML VIAL ONE ×2 (07:04)
[2018-05-14] MEDS ORDERED: *HR* Succinylcholine 200 MG/10 ML VIAL IVP ONE (07:04)
[2018-05-14] MEDS ORDERED: Ondansetron 4 MG/2 ML VIAL ONE (07:04)
[2018-05-14] MEDS ORDERED: Lidocaine -MPF 4% 5 ML AMPUL ONE (07:04)
[2018-05-14] MEDS ORDERED: Lidocaine -MPF 2% 2 ML VIAL ONE (07:04)
[2018-05-14] MEDS ORDERED: *HR* Midazolam HCl 2 MG/2 ML VIAL ONE (07:07)
[2018-05-14] MEDS ORDERED: *HR* FentaNYL (PF) 100 MCG/2 ML VIAL ONE (07:07)
[2018-05-14] MEDS ORDERED: *HR* Propofol 200 MG/20 ML VIAL IVP ONE (07:07)
--- NOTE | 2018-05-14 07:17 | Anesthesia Evaluation PreOp ---
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 (migraines, chronic pain, anxiety, depression) Other Medical History: GERD, Other (BMI 43) Anesthesia History: No Prior Anesthetic Complications, Past Anesthesia (EGD, colonoscopy, hysterectomy, BMT, [facility] end[facility],) Alcohol Use: rarely Drug use: none Medications and Allergies rOPINIRole [Requip] 1 mg PO HS 04/25/16 [History] Escitalopram [Lexapro] 20 mg PO DAILY 07/16/16 [History] Latanoprost [Xalatan] 1 drop BOTH EYES QPM 07/27/16 [History] Oxybutynin [Ditropan] 10 mg PO BID 10/23/16 [History] Pantoprazole Sodium [Protonix] 40 mg PO DAILY 10/23/16 [History] amLODIPine [Norvasc] 5 mg PO DAILY 10/23/16 [History] ALPRAZolam [Xanax 0.5 MG Tablet] 0.5 mg PO TID PRN 03/18/17 [History] Polyethylene Glycol 3350 [MiraLAX Powder Bulk 17.9 Oz] 1 scoop PO DAILY PRN [History] Ranitidine HCl [Heartburn Relief] 150 mg PO BID 03/18/17 [History] Albuterol Sulfate [Albuterol Inhaler] 2 puff IH Q4HR PRN 12/29/17 [History] Benzonatate [Tessalon] 100 mg PO TID 12/29/17 [History] Gabapentin [Neurontin] 800 mg PO TID 12/29/17 [History] Ondansetron HCl 4 mg PO TID PRN 12/29/17 [History] predniSONE [PredniSONE] 40 mg PO DAILY 12/29/17 [History] OxyCODONE Immed Rel [Roxicodone 5 MG] 5 mg PO Q6HR PRN 7 Days #28 tablet [Rx] 3 Allergy/AdvReac Type Severity Reaction Status Date / Time No Known Allergies Allergy Verified 03/13/18 15:07 - Meds/Allergy Pre-op Review Medications Reviewed: Yes Allergies Reviewed: Yes Beta Blockers on Current Med List: No Anesthesia Results - Labs Laboratory Tests 03/13/18 05/07/18 05/07/18 15:17 14:34 14:50 WBC 6.6 Hgb 15.7 H Hct 46.8 H Plt Count 172 PT 11.3 INR 1.0 APTT 29.6 Sodium Potassium Chloride Carbon Dioxide BUN Creatinine Glucose 86 05/07/18 14:50 WBC Hgb Hct Plt Count PT INR APTT Sodium 137 Potassium 4.7 Chloride 105 Carbon Dioxide 28 BUN 18 Creatinine 0.92 Glucose - Imaging EKG: report reviewed (SINUS RHYTHM Electronically Signed On 03-14-2018 20:59:09 EDT by Cameron Thornton) Anesthesia Exam O2 Sat Height 1.65 m Height 1.65 m Weight 119.748 kg Weight 119.748 kg O2 Sat by Pulse Oximetry 98 Vital Signs Temp Pulse Resp BP Pulse Ox 98.6 F 74 18 146/79 98 05/14/18 07:00 05/14/18 07:00 05/14/18 07:00 05/14/18 07:00 05/14/18 07:00 - HEENT Pupil (Motor): Pupils equal, EOMI Mallampati: II Teeth: Edentulous Denture Type: Upper: Complete, Lower: Complete Oral Opening: Greater than 3 - 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
[2018-05-14] MEDS ORDERED: Albuterol 2.5 MG/3 ML NEBULIZER IH ONE (07:19)
[2018-05-14] MEDS ORDERED: CeFAZolin Syr 2,000MG/20 ML 2,000 MG/20 ML SYRINGE IVPB ONE (07:19)
[2018-05-14] MEDS ORDERED: ROPIVACAINE HCL/PF 0.5% 30 ML VIAL ONE (07:21)
[2018-05-14] MEDS ORDERED: Bupivacaine/Clonidine Syringe 1 EACH SYRINGE ONE (07:22)
[2018-05-14] MEDS ORDERED: Albuterol 2.5 MG/3 ML NEBULIZER ONE (07:23)
[2018-05-14] MEDS ORDERED: Acetaminophen IV 1,000 MG/100 ML INFUS..BTL ONE (07:28)
[2018-05-14] MEDS ORDERED: Ringers Solution, Lactated 1,000 ML IVC SCH ×2 (07:30→10:17)
[2018-05-14] MEDS ORDERED: *HR* Promethazine 25 MG/ML VIAL IVP PRN (07:38)
[2018-05-14] MEDS ORDERED: Ondansetron 4 MG/2 ML VIAL IVP ONE (07:38)
[2018-05-14] MEDS ORDERED: *HR* OxyCODONE/APAP 5/325 TABLET PO PRN ×2 (07:38→10:17)
[2018-05-14] MEDS ORDERED: *HR* HYDROmorphone (PF) 1 MG/ML SYRINGE IVP PRN (07:38)
[2018-05-14] MEDS ORDERED: Albuterol 2.5 MG/3 ML NEBULIZER IH PRN (07:38)
[2018-05-14] MEDS ORDERED: Ethanol\\Acetic Acid\\Na Ace\\Ben 1,000 ML IRRIG.SOLN IR ONE (07:40)
[2018-05-14] MEDS ORDERED: *HR* PHENYLEPHRINE 1,000 MCG/10 ML SYRINGE IVP ONE (08:27)
--- NOTE | 2018-05-14 08:31 | Anesthesia Procedures ---
Date of Encounter: 05/14/18 Time of Encounter: 07:52 Procedures: Anesthesia - Nerve Block Procedure Date: 05/14/18 Time: 07:52 Allergies/Adv Reactions: NKDA Surgical Procedure: L Reverse Ball Total Shoulder. Checklist: Correct Patient Identifier, Correct procedure, History checked Correct side: Left Blood Thinner: No Monitor Applied: EKG, BP, Pulse Oximetry Supplemental Oxygen via Nasal Cannula (L/min): 2 Sedation: Versed (mg): 2 Sedation: Fentanyl (mcg): 100 Indication: Post Op Analgesia Pre-op Neuro Deficits: No Block Type: Supraclavicular, Other (Intercostobracheal and Intermediate Cervical Plexus Block) Catheter placed: No Sterile Technique: Yes Ultrasound used: Yes Anatomy identified: Yes Visual spread of Local: Yes Neuro Stimulation: No Blood on Needle Aspiration: No Smooth Injection of Local: Yes Pain with Injection of Local: No Prep: Chlorhexadine Needle: 22 x 50 mm Stimuplex Local: 0.25% Bupivicaine w/Clonidine 20 mcg/cc (10mL Intermediate Cervical, 10mL Intercostobracheal Block), Ropivacaine (0.5% Ropivacaine with 8mg decadron 30mL ) Number of Attempts: 1 Complications: None/effective block Vitals: Vital Signs/O2 Sat/Glucose, Most Recent Temp Pulse Resp BP Pulse Ox 98.6 F 77 18 154/92 97 05/14/18 07:00 05/14/18 08:07 05/14/18 07:26 05/14/18 08:07 05/14/18 08:07
--- NOTE | 2018-05-14 08:40 | Discharge Summary ---
Outpatient Proc Discharge Plan - Plan Additional Instructions: MYRINGOTOMY WITH EAR TUBE INSERTION POSTOPERATIVE INSTRUCTIONS 1. There may be drainage (clear to slightly bloody only) for the first 2-3 days postoperatively. Clean any drainage from the outside of the ear ONLY with hydrogen peroxide on a Q-tip. Do not worry about cleaning the inside of the ear canal. If the drainage is different than described above, or persists beyond 48 hours, please notify our office at [phone]. 5. Use eardrops as prescribed by your doctor following surgery. Please follow the instructions below: a. For the first 3 days after surgery, use 3-4 eardrops 3 times daily in LEFT ear. After 3 days, use of drops only if you suspect that you have gotten water in the ears and have pain. Afterwards, save the remaining drops in your refrigerator. Always warm drops in your fist before using in the ear. b. Use the prescribed drops only if you suspect water contamination of the ear(s). Use the 1-2 drops in that ear at the time of exposure. If any problems persist, call our office at [phone]. [facility] CARE OF THE EAR 1. The pressure equalization tube generally stay in the ear 6-24 months. During that period of time the only extra care acquired as to prevent non- chlorinated water (such as [place] or pond water) from getting into the ear. Surface swimming in a swimming pool does not require extra ear protection! If you swim in a [place] or [place] then CORRINA earplugs may be purchased from the local drugstore. These are soft silicone earplug secondly molded to fit the ears and make a watertight seal. 2. If you ever noticed pain or drainage from the ears call to make an appointment at [address] [place] [address] or call for an appointment with your family physician. This could indicate an ear infection. In addition, bloody drainage may also be noted from the ear. This is not an emergency! This simply indicates that there is probably an ear infection present. 3. Dr. Ward will check the ears 1 month postoperatively, after this they will be checked every year. If no appointment is scheduled call to make an appointment at [facility]. Prescriptions: OxyCODONE Immed Rel [Roxicodone 5 MG] 5 mg PO Q6HR PRN 7 Days #28 tablet PRN Reason: Severe Pain Home Medications: OxyCODONE Immed Rel [Roxicodone 5 MG] 5 mg PO Q6HR PRN 7 Days #28 tablet [Rx] ALPRAZolam [Xanax 0.5 MG Tablet] 0.5 mg PO TID PRN 05/14/18 [History] Albuterol Sulfate [Ventolin Hfa] 2 puff IH Q6H PRN 05/14/18 [History] Benzonatate [Tessalon] 200 mg PO TID PRN 05/14/18 [History] DiphenhydraMINE [Benadryl] 25 mg PO Q8HR PRN 05/14/18 [History] Escitalopram [Lexapro] 20 mg PO BID 05/14/18 [History] Famotidine [Pepcid] 40 mg PO BID 05/14/18 [History] Fluticasone Propionate Nasal [Flonase] 2 spr NS DAILY PRN 05/14/18 [History] Gabapentin [Neurontin] 800 mg PO TID 05/14/18 [History] Latanoprost [Xalatan] 1 drop BOTH EYES HS 05/14/18 [History] Loratadine [Allergy Relief] 10 mg PO DAILY PRN 05/14/18 [History] Methocarbamol [Robaxin] 750 mg PO Q8HR PRN 05/14/18 [History] Omeprazole [PriLOSEC] 20 mg PO DAILY 05/14/18 [History] Ondansetron HCl [Zofran] 4 mg PO Q8HR PRN 05/14/18 [History] Oxybutynin [Ditropan] 5 mg PO BID 05/14/18 [History] Pantoprazole Sodium [Protonix] 40 mg PO DAILY 05/14/18 [History] Tizanidine HCl 2 mg PO TID PRN 05/14/18 [History]
[2018-05-14] MEDS ORDERED: *HR* Magnesium Sulfate 1 GM/2 ML VIAL ONE (08:44)
--- NOTE | 2018-05-14 08:55 | Orthopedic Operative Note ---
Date of procedure: 05/14/18 Pre-op diagnosis: Left shoulder cuff tear arthropathy Post-op diagnosis: same Procedure: Procedure: Total Shoulder Replacment Reverse, left Estimated blood loss: 50 cc Hardware: Metal and polyethylene replacement: Arthrex 24, +2 , 25 mm screw glenoid baseplate, 2 4.5 screws. 2 5.5 screw, 39+4 glenosphere, 7 humeral stem, poly insert 3 Exam Under anesthesia: Full motion no instability Procedural Notes: Grade 4 arthritic changes humeral head and glenoid socket. Rotator cuff tear. Operative procedure: The patient was brought to the operating room and placed on the operating room table. After general anesthesia was administered the operative shoulder was examined. Findings were noted. The patient was placed in the modified beachchair position. All pressure points were padded appropriately. And the head was stabilized in the neutral position. The operative extremity was prepped and draped in the sterile surgical fashion. The patient received IV antibiotics prior to skin incision. A standard deltopectoral approach was made to the operative shoulder. Incision was made to the skin and subcutaneous tissue,hemo stasis was obtained with Bovie cautery. Using careful blunt dissection the cephalic vein was identified and mobilized medially. The deltopectoral interval was developed and the clavipectoral fascia was incised. The subscap was released off the lesser tuberosity and tagged with #2 FiberWire suture subscap irreparable. The humerus was dislocated patient noted to have tear supraspinatus tendon, and the humeral cut was made along the anatomic neck. Patient noted to have grade 4 arthritic changes humeral head. Anterior and posterior Bankart retractors were placed to expose the glenoid. Patient noted to have grade 4 arthritic changes glenoid socket. The glenoid guide was seated and the centering hole was made. It was reamed with the appropriate reamer. The 24 mm, +2, 25 mm screw was seated and secured with (2) 4.5 screws and 2 5.5 screw. The baseplate was irrigated and dried and the 39+4 Glenosphere was seated and secured with the Aguilar taper. The Aguilar taper was tested and found to be secure the humerus was redislocated and prepared with the diaphyseal reamers, followed by a broaching process up to the appropriate size 7 in the patient's anatomic version. The metaphyseal reamer was then utilized. Trial reduction found the shoulder to be relocatable. Trial components were removed and 7 stem was impacted in place in the patient's anatomic version. Trial reduction found the shoulder to be relocatable and stable with the appropriate 3 Trial component was removed and the real implant was seated and secured the shoulder was reduced. The shoulder had excellent motion and excellent stability and no evidence of dislocation. The deep tissue was irrigated with pulse irrigation. The PA close the shoulder. The deltopectoral interval was closed with a running #1 PDS suture, subcutaneous tissue was irrigated and closed with 0 PDS suture, the skin was closed with Dermabond. The patient was then treated by Dr. Ward for ear tube placement. Anesthesia: GETA Surgeon: Phong Mejia Was there an assistant project engineer present: Yes Mental Health Assistant: Emely Shaikh Estimated blood loss (cc): 50 Condition: stable Disposition: other (Surgical management was taken over by Dr. Ward for her procedure.)
[2018-05-14] MEDS ORDERED: Ciprofloxacin/Dex *EAR* Susp 7.5 ML BOTTLE ONE (09:10)
--- NOTE | 2018-05-14 09:41 | Operative Note ---
Date of procedure: 05/14/18 Procedure: Preoperative Diagnosis: Chronic serous otitis media left ear, eustachian tube dysfunction ear, conductive hearing loss left ear Postoperative Diagnosis: Same Name of Procedure: Left tympanostomy with insertion of tubes Findings: Slight amount of tympanosclerosis of the TM, serous effusion in the middle ear space Surgeon: Samra Ward Machine Designer, none Blood loss: 1 mL Anesthesia: Gen. Specimens: None Indications for the procedure: Patient is a 52-year-old female that presented my office with decreased hearing for the left ear. Patient with a history of ear tube placement in the past approximately a year and a half ago. When patient was seen in the office the left tube was out and sitting in the ear canal. It was removed in the office in patient had a serous effusion in the middle ear space visualized on binocular microscopy. Consent; risks benefits alternatives to bilateral tympanostomy with insertion of tubes was discussed in detail with the patient in the office. Risks discussed in detail with the mother including bleeding, infection, damage to the hearing structures, persistent otorrhea, retained tube, change in hearing, possible need for further further surgery. Patient understood these risks and did discuss with me that he she was having a surgery on her left shoulder with Dr. Mejia in the near future. Patient was unsure what the day was but was and then coming weeks. Discussed that if Dr. Mejia was okay with this that I would place an ear tube at the time of the shoulder surgery. On the morning of the surgery, it was determined that scheduling did not properly schedule this together even know consents were signed for the procedure. Patient did notify the nurse that she wanted the left ear tube placed at the time if this was at all possible today. My salesperson surgical appliances as well as they were legal team at the hospital was contacted regarding this matter as patient was RD taken to the operating room and placed under anesthesia at the time that I was able to make it to the operating room to speak with her. I was not able to mary her left ear prior to the procedure but the patient did indicate to the nurse in the holding area preoperatively that it was the left ear which was the same side as her shoulder that was being operated on. This was the side that was indicated in my office know as well as on the consent. We did agreed to proceed with surgery as planned and listed on the consent and office know. Description of procedure: Patient was identified in the Pre-operative area by name and date of an was brought back to the OR by the anesthesia team. Patient underwent general anesthesia and patient had orthopedic surgery performed by Dr. Mejia. After this was complete I was notified and my procedure took place. A new timeout was performed indicating the procedure, patient's name and date of . The left ear was visualized using the operating microscope with 250 mm focal length. An appropriately sized speculum was placed within the ear canal. Any wax and debris was cleaned from the canal using a curette. The tympanic membrane was then visualized and landmarks identified. Myringotomy knife was then used to make an incision in the posterior inferior quadrant of the tympanic membrane. Fine suction was used to remove any fluid. Modified Hernandez T-Tube was then placed within the myringotomy using alligator forceps. Tube position was then adjusted so that the face of the tube sat flush against the tympanic membrane. Ciprofloxacin drops are then placed within the ear canal and speculum was removed. The tragus was then pumped multiple times to help flush the antibiotic drops through the tube into the middle ear space and small cotton ball was placed in the conchal bowl. Patient was turned back over to anesthesia. Counts were correct at the end of the case. Was there an licensed physical therapy assistant present: No Estimated blood loss (cc): 1 Specimen: none
--- NOTE | 2018-05-14 10:04 | Anesthesia Evaluation Post Op ---
Date of Encounter: 05/14/18 Time of Encounter: 10:04 - Vital Signs Vital Signs: Vital Signs/O2 Sat, Most Current Temp Pulse Resp BP Pulse Ox 97.5 F L 82 16 124/74 94 05/14/18 09:32 05/14/18 09:52 05/14/18 09:52 05/14/18 09:52 05/14/18 09:52 - Lungs Lungs: Clear Ascult./Percussion - Airway Airway: Non-obstructed - Cardiovascular Regular Rate - Mental Status Mental Status: Alert & Oriented, Answers Appropriately - Pain Pain Scale: 0 Pain Scale used: Numeric (1 - 10) - Nausea Vomiting Nausea Vomiting: Not Present - Hydration Hydration: NPO - Discharge PostOp Status: Transfer Patient to floor
[2018-05-14] MEDS ORDERED: Fluticasone Propionate Nasal 50 MCG/SPRAY BOTTLE NS PRN (10:17)
[2018-05-14] MEDS ORDERED: Ondansetron 4 MG/2 ML VIAL IVP PRN (10:17)
[2018-05-14] MEDS ORDERED: tiZANidine 4 MG TABLET PO PRN (10:17)
[2018-05-14] MEDS ORDERED: Benzonatate 100 MG CAPSULE PO PRN (10:17)
[2018-05-14] MEDS ORDERED: Sennosides 8.6 MG TABLET PO PRN (10:17)
[2018-05-14] MEDS ORDERED: Naloxone 0.4 MG/ML INJ IVP PRN (10:17)
[2018-05-14] MEDS ORDERED: MOM Conc 10 ML UD.LIQ PO PRN (10:17)
[2018-05-14] MEDS ORDERED: traMADol 50 MG TABLET PO PRN (10:17)
[2018-05-14] MEDS ORDERED: Famotidine 20 MG TABLET PO SCH (10:17)
[2018-05-14] MEDS ORDERED: NON-FORMULARY MEDICATION 1 EACH EACH (Ondansetron Hcl [Zofran] 4 MG) PO PRN (10:17)
[2018-05-14] MEDS ORDERED: NON-FORMULARY MEDICATION 1 EACH EACH (Pantoprazole Sodium [Protonix] 40 MG) PO SCH (10:17)
[2018-05-14] MEDS ORDERED: ALPRAZolam 0.5 MG TABLET PO PRN (10:17)
[2018-05-14] MEDS ORDERED: Loratadine 10 MG TABLET PO PRN (10:17)
[2018-05-14] MEDS ORDERED: Methocarbamol 500 MG TABLET PO PRN (10:17)
[2018-05-14] MEDS ORDERED: Temazepam 15 MG CAPSULE PO PRN (10:17)
[2018-05-14 10:56] LABS: Hematocrit 42.6 % (35.3-44.9)
[2018-05-14 11:01] LABS: Hemoglobin 14.1 g/dL (11.5-15.4)
[2018-05-14] MEDS: Gabapentin 400 MG CAPSULE PO SCH ×2 (11:36→14:57)
[2018-05-14] MEDS: *HR* OxyCODONE Immed Rel 5 MG TABLET PO PRN ×2 (12:40→16:56)
[2018-05-14 14:56] VITALS: BP 127/79
[2018-05-14] MEDS ORDERED: *HR* Enoxaparin 30 MG/0.3 ML SYRINGE SQ SCH ×2 (16:00→18:00)
[2018-05-14] MEDS ORDERED: Latanoprost 2.5 ML BOTTLE BOTH EYES SCH (21:00)
[2018-05-14] MEDS ORDERED: Ciprofloxacin/Dex *EAR* Susp 7.5 ML BOTTLE LEFT EAR SCH ×2 (21:00)
== END 2018-05-14 17:46 | disposition home health service (06) | DRG 315 ==
LOC: SAMDAY 06:32 → 3NENU 10:39
PROVIDERS: ADMIT Orthopaedic Surgery; ATTEND Orthopaedic Surgery